=== PATIENT | female | born 1990 | race Caucasian/White ===

== ENCOUNTER 2016-09-15 01:44 | Emergency (ER) | payer BC, OTHER ==
[~2016-09-15] VITALS: Ht 162.6 cm; Wt 60.0 kg
[~2016-09-15 01:44] MED LIST: OLAN10 PO
[2016-09-15 01:46] VITALS: BP 158/107; PULSE 97; RESP 16; TEMP 97.8; O2SAT 97
[2016-09-15] MEDS ORDERED: OLAN10TA PO (02:28)
--- NOTE | 2016-09-15 02:30 | PD ---
HPI Chief Complaint: Medical Clearance Time Seen by Provider: 02:21 Travel History International Travel<30 days: No Contact w/Intl Traveler<30days: No Traveled to known affect area: No History of Present Illness HPI 26-year-old white female presents to emergency department requesting something for sleep. She is also requesting a ride to the [facility]. She states that she was kicked out of the house by her boyfriend because she went to visit her ex-boyfriend in senior care this week. She also goes on to state that she was seen at [facility] 2 days ago was prescribed Zyprexa and another medication but has not filled them. She has no intention of taking these medications. She states that she hasn't slept in on Sunday. She wanted some trazodone and a place to sleep. She denies any suicidal homicidal ideation. No toxic ingestions. PFSH Past Medical History Bipolar Disorder: Yes Anxiety: Yes Depression: Yes Cancer: No Cardiovascular Problems: No Diminished Hearing: No Endocrine: No Genitourinary: No Immune Disorder: No Musculoskeletal: No Neurologic: No Psychiatric: Yes (Bipolar) Reproductive: No Respiratory: No Tetanus Vaccination: < 5 Years ?: Not : 0 Para: 0 Past Surgical History Surgical History: No Previous Surgery Social History Alcohol Use: Yes (OCC) Tobacco Use: Yes (OCC BLACK AND MILDS) Substance Use: Yes Allergies-Medications (Allergen,Severity, Reaction): Coded Allergies: No Known Allergies (Verified , 09/15/16) Reported Meds & Prescriptions Reported Meds & Active Scripts Active Olanzapine 10 Mg Tab 10 Mg PO DIRECTED 15 Days Take 10mg PO daily and 20mg PO qHS. Review of Systems Except as stated in HPI: all other systems reviewed are Neg Psychiatric: Positive: Mood Disorder, Substance Abuse, No: Anxiety, Depression , Suicidal Ideations, Disorder of Thought, Homicidal Ideation Physical Exam Narrative GENERAL: Well-nourished, well-developed patient. SKIN: Warm and dry. HEAD: Normocephalic and atraumatic. EYES: No scleral icterus. No injection or drainage. ENT: No nasal drainage noted. Mucous membranes pink. Airway patent. NECK: Supple, trachea midline. Moves head freely without obvious discomfort. CARDIOVASCULAR: Regular rate and rhythm without murmurs, gallops, or rubs. RESPIRATORY: Breath sounds equal bilaterally. No accessory muscle use. GASTROINTESTINAL: Abdomen soft, non-tender, nondistended. EXTREMITIES: No cyanosis or edema. BACK: Nontender without obvious deformity. No CVA tenderness. NEURO: Patient is alert and oriented. no sensorimotor deficits. Nonfocal. Normal speech. PSYCH: No delusions. No auditory or visual hallucinations. Data Data Last Documented VS Vital Signs Date Time Temp Pulse Resp B/P Pulse Ox O2 Delivery O2 Flow Rate FiO2 09/15/16 01:46 97.8 97 16 158/107 97 Room Air MDM Medical Decision Making Medical Screen Exam Complete: Yes Emergency Medical Condition: Yes Medical Record Reviewed: Yes Differential Diagnosis MDM: High Differential diagnoses: Schizophrenia, schizoaffective disorder, bipolar, anxiety, depression, adjustment reaction, mood disorder NOS, ODD, depressive disorder NOS, dementia, dementia with agitation, psychosis NOS, substance induced mood disorder, intermittent explosive disorder, Asperger syndrome, infection,electrolyte abnormality, malingering. Narrative Course The patient is currently homeless. She is looking for something to help sleep and a way to get to the [facility]. She is not a threat to herself or others. The patient will be allowed to call a friend to see if they can take her home or allow her to stay at their house. This is homelessness Diagnosis Primary Impression: Homelessness Referrals: [facility] (Out patient) Patient Instructions: General Instructions Additional Instructions: Rest. Increase fluids. 50 mg of Benadryl for sleep. Follow-up with [facility]. Follow-up with [facility]. Med/Other Pt SpecificInfo: No Meds Exist/No RX given Disposition: 01 DISCHARGE HOME Condition: Stable Duong Alfonso Sep 15, 2016 02:30
== END 2016-09-15 03:18 | disposition home or self-care (01) ==
LOC: NEPB 01:44
DX: G47.00 Insomnia, unspecified (principal); Z59.0 Homelessness; F31.9 Bipolar disorder, unspecified
CPT/HCPCS: 99282

== ENCOUNTER 2016-11-10 21:15 | Inpatient (IN) | payer BC, OTHER ==
[~2016-11-10] VITALS: Ht 165.1 cm; Wt 63.9 kg
[~2016-11-10 21:15] MED LIST changes: -OLAN10 PO; +OLAN10TA PO
[2016-11-10 21:23] VITALS: BP 121/77; PULSE 121; RESP 20; TEMP 99; O2SAT 99
[2016-11-10] MEDS ORDERED: LORazepam 2 MG/ML VIAL IV ONE (21:30)
[2016-11-10] MEDS ORDERED: SODIUM CHLOR 0.9% 1000 ML INJ 1,000 ML IV ONE (21:30)
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
[2016-11-10] MEDS ORDERED: LORazepam 2 MG/ML VIAL IM ONE (22:00)
[2016-11-10 22:29] LABS: AUTOMATED NEUTROPHIL # 6.5 TH/MM3 (1.8-7.7); BASOPHIL % 0.4 % (0.0-2.0); EOSINOPHIL % 0.2 % (0.0-4.0); HEMATOCRIT 44.2 % (35.0-46.0); HEMO FLAGS DIFF FINAL; LYMPH % 20.6 % (9.0-44.0); MEAN CELL VOLUME 87.3 FL (80.0-100.0); MEAN CORPUSCULAR HEMOGLOBIN 28.9 PG (27.0-34.0); MEAN CORPUSCULAR HGB CONC 33.1 % (32.0-36.0); MONO % 11.8 % (0.0-8.0); PLATELET COUNT 307 TH/MM3 (150-450); RED BLOOD COUNT 5.06 MIL/MM3 (4.00-5.30); RED CELL DISTRIBUTION WIDTH 13.5 % (11.6-17.2); WHITE BLOOD COUNT 9.6 TH/MM3 (4.0-11.0)
[2016-11-10 22:44] LABS: ANION GAP 12 MEQ/L (5-15)
[2016-11-10 22:54] LABS: ALKALINE PHOSPHATASE 64 U/L (45-117); ALT (GPT) 25 U/L (10-53); AST (GOT) 30 U/L (15-37); BICARBONATE 22.1 MEQ/L (21.0-32.0); BLOOD UREA NITROGEN 7 MG/DL (7-18); CHLORIDE 105 MEQ/L (98-107); GLOMERULAR FILTRATION RATE 59 ML/MIN (>89); SODIUM (NA) 139 MEQ/L (136-145); TOTAL BILIRUBIN ADULT 1.6 MG/DL (0.2-1.0)
[2016-11-11 00:55] VITALS: PULSE 100
[2016-11-11 03:37] VITALS: BP 111/79; PULSE 89; RESP 16; O2SAT 99
[2016-11-11] MEDS ORDERED: LORazepam 2 MG/ML VIAL IV PUSH ONE (04:00)
[2016-11-11] MEDS ORDERED: OLANZapine IM 10 MG VIAL IM ONE (04:00)
[2016-11-11 04:07] LABS: AMPHETAMINE, URINE NEG (NEG); COCAINE, URINE NEG (NEG)
[2016-11-11 04:09] LABS: BARBITURATES, URINE NEG (NEG)
[2016-11-11 06:10] VITALS: BP 122/71; PULSE 102; RESP 18; TEMP 97.8; O2SAT 98
[2016-11-11] MEDS ORDERED: MAGNESIUM HYDROXIDE SUSP 30 ML CUP PO PRN (11:15)
[2016-11-11] MEDS ORDERED: ACETAMINOPHEN 325 MG TAB PO PRN (11:15)
[2016-11-11] MEDS ORDERED: ALUMINUM/MAGNESIUM/SIMETH 30 ML CUP PO PRN (11:15)
[2016-11-11] MEDS ORDERED: OLANZapine IM 10 MG VIAL IM STA (11:17)
[2016-11-11] MEDS ORDERED: LORazepam 2 MG/ML VIAL IM STA (11:17)
[2016-11-11 11:20] VITALS: BP 112/66; PULSE 110; TEMP 96.5; O2SAT 99
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
[2016-11-11 14:41] VITALS: BP 114/85; PULSE 97; RESP 18; TEMP 97.6; O2SAT 99
--- NOTE | 2016-11-11 18:21 | EKG ---
Date Performed: 11/10/2016 Time Performed: 23:32:07 PTAGE: 26 years EKG: Sinus rhythm WITH SINUS ARRHYTHMIA BORDERLINE RIGHT AXIS DEVIATION BORDERLINE ECG NO PREVIOUS TRACING DOCTOR: Hao Newell Interpretating Date/Time 11/11/2016 18:14:52
[2016-11-11] MEDS ORDERED: OLANZapine IM 10 MG VIAL IM PRN (21:00)
[2016-11-11] MEDS: OLANZapine ODT 20 MG TAB PO SCH (21:00)
[2016-11-12] MEDS: LORazepam 1 MG TAB PO PRN ×3 (06:33→06:50)
[2016-11-12] MEDS: OLANZapine ODT 10 MG TAB PO SCH (08:21)
[2016-11-12] MEDS ORDERED: OLANZapine IM 10 MG VIAL IM STA (09:56)
[2016-11-12] MEDS ORDERED: LORazepam 2 MG/ML VIAL IM STA (09:56)
[2016-11-12] MEDS ORDERED: diphenhydrAMINE HCL 50 MG/ML VIAL IM STA (09:56)
[2016-11-12] MEDS ORDERED: diphenhydrAMINE HCL 50 MG/ML VIAL ONE (09:56)
[2016-11-12] MEDS: LORazepam 2 MG/ML VIAL IM PRN (16:17)
[2016-11-12 16:25] VITALS: BP 112/73; PULSE 87; RESP 18; TEMP 98.1; O2SAT 98
[2016-11-12] MEDS: OLANZapine ODT 20 MG TAB PO SCH (20:52)
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
[2016-11-13] MEDS: LORazepam 1 MG TAB PO PRN ×3 (04:33→18:01)
[2016-11-13 06:42] VITALS: BP 134/90; PULSE 94; RESP 21; TEMP 98.6; O2SAT 100
[2016-11-13] MEDS: OLANZapine ODT 10 MG TAB PO SCH (08:31)
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
[2016-11-13 15:15] VITALS: BP 114/73; PULSE 104; RESP 18; TEMP 97.8; O2SAT 97
[2016-11-13] MEDS: OLANZapine ODT 20 MG TAB PO SCH (20:29)
[2016-11-14 06:26] VITALS: BP 124/76; PULSE 74; RESP 18; TEMP 97.7; O2SAT 97
[2016-11-14] MEDS: OLANZapine ODT 10 MG TAB PO SCH (09:00)
--- NOTE | 2016-11-14 13:24 | HHI.PYPN ---
Subjective Remarks Patient was seen and discussed with the staff technologist. Patient claimed that she has been feeling better with the medication but said her mind is still racing. But she denied any suicidal ideation intentions or plan. No side effects were complained. She likes the medication. Advised to continue with the same treatment Review of Systems Except as stated in HPI: all other systems reviewed are Neg Psychiatric: COMPLAINS OF: Mood changes, Delusions Objective Alert: Yes [place]: Person, Place, Date, Situation Mood: Agitated, Angry Affect: Labile, Manic Memory Intact: Immediate, Recent, Remote Hallucinations: Other (patient denied any active auditory or visual hallucinations but her mind is still racing) Delusions: No Delusion Type: Paranoid, Other (with mind racing) Suicidal: Ideation (patient denied any suicidal ideation intentions or plan) Homicidal: Ideation (denies) Insight/Judgement Fair Vitals/IOs Vital Signs Date Time Temp Pulse Resp B/P Pulse Ox O2 Delivery O2 Flow Rate FiO2 11/14/16 06:26 97.7 74 18 124/76 97 11/11/16 06:10 Room Air Assessment & Plan Problem List: (1) Bipolar I disorder, severe, current or most recent episode manic, with psychotic features ICD Code: F31.2 Assessment & Plan Estimated LOS: days Justification for Cont. Inpt. Monitoring and titrating of the medication risk of decompensation Request HC Surrog/Guard Advoc?: Yes Obinna Cartagena MD Nov 14, 2016 13:24
[2016-11-14 15:32] VITALS: BP 116/60; PULSE 93; RESP 18; TEMP 98.1; O2SAT 97
[2016-11-14] MEDS: OLANZapine ODT 20 MG TAB PO SCH (20:24)
[2016-11-15] MEDS: diphenhydrAMINE HCL 50 MG CAP PO PRN ×2 (03:44→20:15)
[2016-11-15] MEDS: LORazepam 1 MG TAB PO PRN (06:18)
[2016-11-15 06:41] VITALS: BP 129/83; PULSE 86; RESP 18; TEMP 97.3; O2SAT 97
[2016-11-15] MEDS: OLANZapine ODT 10 MG TAB PO SCH (08:45)
--- NOTE | 2016-11-15 13:21 | HHI.PYPN ---
Subjective Remarks Remains emotionally labile, unable to control her anger, threatening other patients, and demonstrating poor insight and poor judgment. Review of Systems ROS Limitations: Clinical Condition Except as stated in HPI: all other systems reviewed are Neg Objective Alert: Yes [place]: Person, Place, Date, Situation Mood: Agitated, Angry Affect: Labile, Manic Memory Intact: Immediate, Recent, Remote Hallucinations: Other (patient denied any active auditory or visual hallucinations but her mind is still racing) Delusions: Yes Delusion Type: Paranoid, Other (with mind racing) Suicidal: Ideation (patient denied any suicidal ideation intentions or plan) Homicidal: Ideation (denies) Insight/Judgement Patient continues to demonstrate markedly impaired insight and judgment, threatening to harm other patients. Vitals/IOs Vital Signs Date Time Temp Pulse Resp B/P Pulse Ox O2 Delivery O2 Flow Rate FiO2 11/15/16 06:41 97.3 86 18 129/83 97 Assessment & Plan Problem List: (1) Bipolar I disorder, severe, current or most recent episode manic, with psychotic features ICD Code: F31.2 Assessment & Plan Estimated LOS: days Justification for Cont. Inpt. Unable to care for self and threatening other patients. Request HC Surrog/Guard Advoc?: Yes Krzysztof Mills MD Nov 15, 2016 13:21
[2016-11-15 19:29] VITALS: BP 117/84; PULSE 105; RESP 18; TEMP 98.5; O2SAT 96
[2016-11-15] MEDS: OLANZapine ODT 20 MG TAB PO SCH (20:15)
[2016-11-16 05:27] VITALS: BP 127/78; PULSE 100; RESP 18; TEMP 98.2; O2SAT 97
[2016-11-16] MEDS: OLANZapine ODT 10 MG TAB PO SCH (09:00)
[2016-11-16] MEDS ORDERED: diphenhydrAMINE HCL 50 MG/ML VIAL IM ONE (10:15)
[2016-11-16] MEDS ORDERED: HALOPERIDOL LACTATE 5 MG/ML AMP IM ONE (10:15)
[2016-11-16] MEDS: LORazepam 2 MG/ML VIAL IM PRN (10:23)
--- NOTE | 2016-11-16 11:30 | HHI.PYPN ---
Subjective Remarks Patient seen and examined during fresh air in the [facility] area. Chart reviewed. I see that the patient has been restarted on the Zyprexa 30 mg per day on which she was previously stabilized during her hospitalization in May of last year under my care. Case discussed with nursing staff who reports patient remains hostile and intrusive. Prior to my formal evaluation of the patient this morning the patient had grown agitated and was picking up chairs, preparing to throw them. I ordered her medicated with Haldol, Ativan and Benadryl at that time. At the time of my evaluation, the patient is somewhat calmer but remains extremely irritable. She insists that her nurse is a "crackhead" and medicated her with crack, and further the patient suspects I am a crackhead as well. Thought process is disorganized with significant loosening of associations. Denies side effects from medications. Review of Systems ROS Limitations: Psychotic, Poor Historian Other No physical complaints today Objective Alert: Yes [place]: Person, Place (at least) Mood: Agitated, Angry Affect: Restricted (dysphoric) Memory Intact: Comment (not formally assessed) Hallucinations: Other (no AVH) Delusions: Yes Delusion Type: Paranoid Suicidal: Ideation (no SI but unreliable to contract for safety in her present state) Homicidal: Ideation (no HI but unreliable contract for safety in her present state) Insight/Judgement Poor Remarks No abnormal motor movements noted. Thought process disorganized with loosening of associations. Speech somewhat pressured and rambling. Grooming and hygiene are fair at best. Labs Labs reviewed. No new labs. I note that ED [id number]-ru-[id number] test was negative. GFR was decreased, but this was perhaps due to dehydration at admission. Vitals/IOs Vital Signs Date Time Temp Pulse Resp B/P Pulse Ox O2 Delivery O2 Flow Rate FiO2 11/16/16 05:27 98.2 100 18 127/78 97 Assessment & Plan Problem List: (1) Bipolar I disorder, severe, current or most recent episode manic, with psychotic features ICD Code: F31.2 Assessment & Plan Patient with ongoing severe lesia despite several days of Zyprexa monotherapy. Given the severity of her psychiatric symptoms at present, I will add Depakote ER 25mg/kg ~= 1500mg qHS for mood stabilization and plan to check a Depakote and ammonia level after the appropriate interval. LFTs and platelets okay and verrz-ei-zumi test in the ED was negative as I said. I will recheck a BMP to ensure the patient's GFR is improved. Continue to monitor closely on the inpatient psychiatric unit. I will institute mouth checks. Continue other medications and care as ordered. Justification for Cont. Inpt. Impairments in safety. Impairments in social function. Medication changes in process. High risk for decompensation in a less restrictive environment. Discharge Planning Pending psychiatric stabilization Request HC Surrog/Guard Advoc?: Yes Sixto Calvo MD Nov 16, 2016 11:29
[2016-11-16 14:55] LABS: BICARBONATE 24.2 MEQ/L (21.0-32.0); POTASSIUM 3.8 MEQ/L (3.5-5.1)
[2016-11-16 18:19] VITALS: BP 127/83; PULSE 97; RESP 17; TEMP 97.2; O2SAT 99
[2016-11-16] MEDS: OLANZapine ODT 20 MG TAB PO SCH (20:17)
[2016-11-16] MEDS ORDERED: DIVALPROEX SODIUM E.R. 500 MG TAB PO SCH (21:00)
[2016-11-17 05:48] VITALS: BP 123/71; PULSE 89; RESP 18; TEMP 98; O2SAT 98
[2016-11-17] MEDS ORDERED: HALOPERIDOL LACTATE 5 MG/ML AMP IM ONE (07:30)
[2016-11-17] MEDS ORDERED: LORazepam 2 MG/ML VIAL IM ONE (07:30)
[2016-11-17] MEDS ORDERED: diphenhydrAMINE HCL 50 MG/ML VIAL IM ONE (07:30)
[2016-11-17] MEDS: OLANZapine ODT 10 MG TAB PO SCH (09:40)
--- NOTE | 2016-11-17 11:24 | HHI.PYPN ---
Subjective Remarks Patient seen and examined. Chart reviewed. Case discussed with counselor, nursing staff and occupational therapist in treatment team. Prior to my arrival on the unit I was called by the nursing staff that the patient was becoming acutely agitated, and I ordered her medicated with Haldol, Ativan and Benadryl. Per nursing staff, patient has calmed after receiving the ETO. She did refuse her Depakote overnight. Per occupational therapist, patient does endeavor to participate in groups, but her degree of thought disorder prevents her from contributing much. On my examination today, the patient continues to display some loosening of associations. She provides some material linking God and Dioni Sanford, but the connection is quite tenuous. She says that she will continue to refuse the Depakote because it is "dope" and she doesn't want to feel "dope sick." She likewise believes the ETO was "dope." She continues to take the Zyprexa and is tolerating this well without side effects. Review of Systems ROS Limitations: Poor Historian Other No physical complaints today. Objective Alert: Yes [place]: Person, Place Mood: Other (Calmer) Affect: Other (A little expansive) Memory Intact: Comment (not formally assessed) Hallucinations: Other (No AVH) Delusions: No Delusion Type: Other (possibly some grandiosity.) Suicidal: Ideation (No SI) Homicidal: Ideation (No HI) Insight/Judgement Poor Remarks No motoric abnormalities noted. TP as above. Speech remains a little pressured. Labs Test 11/16/16 14:19 Sodium Level 140 MEQ/L Potassium Level 3.8 MEQ/L Chloride Level 106 MEQ/L Carbon Dioxide Level 24.2 MEQ/L Anion Gap 10 MEQ/L Blood Urea Nitrogen 15 MG/DL Creatinine 0.87 MG/DL Estimat Glomerular Filtration 78 ML/MIN Rate Random Glucose 90 MG/DL Calcium Level 8.6 MG/DL Labs reviewed. No new labs. Vitals/IOs Vital Signs Date Time Temp Pulse Resp B/P Pulse Ox O2 Delivery O2 Flow Rate FiO2 11/17/16 05:48 98.0 89 18 123/71 98 Assessment & Plan Problem List: (1) Bipolar I disorder, severe, current or most recent episode manic, with psychotic features ICD Code: F31.2 Assessment & Plan Patient with ongoing issues with agitation requiring ETO. She is on a maximal dose of Zyprexa and plans to continue to refuse Depakote. She does respond nicely to Haldol ETO, albeit temporarily. I will therefore add some scheduled Haldol PO with IM backup given the issues with accepting meds other than Zyprexa. QTc 417ms on admission. Discontinue Depakote. Continue other medications and care as ordered. Justification for Cont. Inpt. Ongoing issues with agitation. Impairments in social function. Medication changes in process. High risk for decompensation in a less restrictive environment. Discharge Planning Pending psychiatric stabilization. Request HC Surrog/Guard Advoc?: Yes Sixto Calvo MD Nov 17, 2016 11:24
[2016-11-17] MEDS ORDERED: HALOPERIDOL LACTATE 5 MG/ML AMP IM PRN (16:15)
[2016-11-17 17:59] VITALS: BP 105/69; PULSE 99; RESP 18; TEMP 98; O2SAT 97
[2016-11-17] MEDS ORDERED: ONDANSETRON ODT 4 MG TAB PO PRN (18:15)
[2016-11-17] MEDS: HALOPERIDOL 5 MG TAB PO SCH (21:00)
[2016-11-17] MEDS: OLANZapine ODT 20 MG TAB PO SCH (21:00)
[2016-11-18] MEDS: HALOPERIDOL 5 MG TAB PO SCH ×2 (08:53→08:56)
[2016-11-18] MEDS: OLANZapine ODT 10 MG TAB PO SCH (08:53)
[2016-11-18] MEDS: LORazepam 1 MG TAB PO PRN (14:49)
--- NOTE | 2016-11-18 15:42 | HHI.PYPN ---
Subjective Remarks Patient was seen and case discussed with nursing. This morning patient was yelling and agitated. She is also adamant that the Haldol is causing nausea, vomiting, diarrhea and refuses to take it. She continues to be compliant with Zyprexa. However she made a statement that she plans on not taking it after discharge however, after psychoeducation she change her mind. He remains a poor insight into her admission. She refuses medications for diarrhea and remains paranoid any medications. Mood is irritable. Denies suicidal ideation intent or plan Objective Alert: Yes [place]: Person, Place Mood: Calm Affect: Blunted Memory Intact: Comment (not formally assessed) Hallucinations: Other (No AVH) Delusions: No Delusion Type: Other (possibly some grandiosity.) Suicidal: Ideation (No SI) Homicidal: Ideation (No HI) Insight/Judgement Poor Vitals/IOs Vital Signs Date Time Temp Pulse Resp B/P Pulse Ox O2 Delivery O2 Flow Rate FiO2 11/17/16 17:59 98.0 99 18 105/69 97 Assessment & Plan Problem List: (1) Bipolar I disorder, severe, current or most recent episode manic, with psychotic features ICD Code: F31.2 Assessment & Plan Nursing confirms that patient did have nausea and vomiting secondary to Haldol. I'm going to hold it for this weekend and let treating psychiatrist decide on further medication management. Patient was reminded that if she becomes aggressive we may have to resume that medication Justification for Cont. Inpt. Patient will decompensate in a less restrictive setting Request HC Surrog/Guard Advoc?: Yes Fito Mercado DO Nov 18, 2016 15:42
--- NOTE | 2016-11-18 17:26 | EKG ---
Date Performed: 11/17/2016 Time Performed: 17:36:32 PTAGE: 26 years EKG: Sinus rhythm MODERATE ST DEPRESSION Compared to prior tracing no significant change ABNORMAL ECG PREVIOUS TRACING : 11/10/2016 23.32 DOCTOR: Krzysztof Ramsey Interpretating Date/Time 11/18/2016 17:26:10
[2016-11-18] MEDS: OLANZapine ODT 20 MG TAB PO SCH (20:24)
[2016-11-18 22:20] VITALS: BP 110/69; PULSE 115; RESP 18; TEMP 98.8; O2SAT 95
[2016-11-19 05:27] VITALS: BP 118/58; PULSE 94; RESP 18; TEMP 98; O2SAT 98
[2016-11-19] MEDS: OLANZapine ODT 10 MG TAB PO SCH (07:58)
[2016-11-19] MEDS: LORazepam 1 MG TAB PO PRN (10:55)
--- NOTE | 2016-11-19 16:38 | HHI.PYPN ---
Subjective Remarks Patient was seen and case discussed with nursing. Patient remains pleasant and cooperative during the interview. Possibly exaggerating her improvement with hopes of discharge. Per nursing she had a minor outburst this morning that by mouth Ativan. Calling some patients racial slurs. Some moderate arguing on the phone. Otherwise she is logical and coherent. No elevated mood. Denies psychosis. Compliant with medications Objective Alert: Yes [place]: Person, Place Mood: Calm Affect: Restricted Memory Intact: Comment (not formally assessed) Hallucinations: Other (No AVH) Delusions: No Delusion Type: Other (none elicited) Suicidal: Ideation (No SI) Homicidal: Ideation (No HI) Insight/Judgement Limited Vitals/IOs Vital Signs Date Time Temp Pulse Resp B/P Pulse Ox O2 Delivery O2 Flow Rate FiO2 11/19/16 05:27 98.0 94 18 118/58 98 Assessment & Plan Problem List: (1) Bipolar I disorder, severe, current or most recent episode manic, with psychotic features ICD Code: F31.2 Assessment & Plan Continue current treatment plan Justification for Cont. Inpt. Patient will decompensate in a less restrictive setting Request HC Surrog/Guard Advoc?: Yes Fito Mercado DO Nov 19, 2016 16:38
[2016-11-19 16:55] VITALS: BP 107/66; PULSE 84; RESP 18; TEMP 98.1; O2SAT 100
[2016-11-19] MEDS: OLANZapine ODT 20 MG TAB PO SCH (21:00)
[2016-11-20 06:12] VITALS: BP 128/71; PULSE 91; RESP 16; TEMP 97.2; O2SAT 97
[2016-11-20] MEDS: OLANZapine ODT 10 MG TAB PO SCH (08:50)
--- NOTE | 2016-11-20 09:59 | HHI.PYPN ---
Subjective Remarks Patient seen and examined with nurse in counselor. Chart reviewed. Case discussed with nurse who reports patient remains somewhat labile and manipulative. She reportedly used racial slurs in referring to staff and peers this morning. On my examination today, patient says that she had a "slight altercation this morning that was quickly resolved." Speech is somewhat stilted and overly proper, and patient seems to be making a concerted effort to appear well. She is discharge focused and insists that she can reside with her boyfriend, Marcus, but clarifies to say that they will be residing in a car on Marcus's brother's property. She remains a little disinhibited and gives unbidden details of her sex life with Marcus. She is tolerating her Zyprexa well and feels that it helps her with socialization. She could not tolerate the Haldol, and this was held by Dr. Mercado. She denies side effects from medications otherwise. Review of Systems ROS Limitations: Poor Historian Other No physical complaints today. Objective Alert: Yes [place]: Person, Place (at least) Mood: Anxious (for discharge) Affect: Labile Memory Intact: Comment (Seems intact on clinical exam.) Hallucinations: Other (None) Delusions: No Delusion Type: Other (No james delusions) Suicidal: Ideation (No SI) Homicidal: Ideation (No HI) Insight/Judgement Poor Remarks TP fairly linear with only slight loosening of association. Speech wnl for rate. No abnormal motor movements. Grooming and hygiene are at least fair. Labs Labs reviewed. No new labs. Vitals/IOs Vital Signs Date Time Temp Pulse Resp B/P Pulse Ox O2 Delivery O2 Flow Rate FiO2 11/20/16 06:12 97.2 91 16 128/71 97 Assessment & Plan Problem List: (1) Bipolar I disorder, severe, current or most recent episode manic, with psychotic features ICD Code: F31.2 Assessment & Plan Patient unable to tolerate addition of Haldol, and in any event she maintains that she will not take any other agent than Zyprexa following discharge. Patient is already on a robust dose of Zyprexa with partial remission of symptoms of bipolar lesia and without evident side effects, including sedation. Larger doses of Zyprexa (up to 60mg/day) have been studied, particularly in the schizophrenia literature. Given the circumstances of the case, I think further titration of her Zyprexa gives the best chance for adequate remission of symptoms to allow for safe discharge, and I will titrate Zyprexa at this time. Discontinue Haldol. Continue other medications and care as ordered. Justification for Cont. Inpt. Impairments in social function. Medication changes requiring monitoring. High risk for decompensation in less restrictive environment pending psychiatric stabilization. Discharge Planning Pending psychiatric stabilization. Counselor to explore further disposition options. Request HC Surrog/Guard Advoc?: Yes Sixto Calvo MD Nov 20, 2016 09:58
[2016-11-20 17:57] VITALS: BP 124/59; PULSE 81; RESP 18; TEMP 98.5; O2SAT 98
[2016-11-20 19:46] VITALS: BP 124/59; PULSE 81; RESP 16; TEMP 98.5; O2SAT 98
[2016-11-20] MEDS: OLANZapine ODT 20 MG TAB PO SCH (20:09)
[2016-11-20] MEDS: diphenhydrAMINE HCL 50 MG CAP PO PRN (23:28)
[2016-11-21] MEDS: LORazepam 1 MG TAB PO PRN (01:48)
[2016-11-21 05:32] VITALS: BP 117/90; PULSE 83; RESP 18; TEMP 98.6; O2SAT 97
[2016-11-21] MEDS: OLANZapine ODT 10 MG TAB PO SCH (08:29)
--- NOTE | 2016-11-21 11:44 | HHI.PYPN ---
Subjective Remarks Patient seen and examined with nurse. Chart reviewed. Case discussed with nurse, counselor and occupational therapist in treatment team. Per nursing staff, patient required Ativan PRN overnight for agitation secondary to frustration at not being discharged. Counselor has reached out to Marcus, the man that patient reported was her boyfriend. Marcus apparently told the counselor that he is not in a relationship with the patient and would not be able to provide her with any sort of housing. Occupational therapist relates that the patient is doing somewhat better but tends to incite peers during groups. On my examination today, the patient insists "I don't have a mental illness." [facility]. She insists that her parents are crackheads. She has extremely poor frustration tolerance and when I explained that we will need to retain her for further stabilization, she rages in her room but is eventually able to calm herself down. She requests a new psychiatrist. She then proceeds to [facility] and says that she knows of several "safe houses" to which she could go if I would only discharge her today. Denies side effects from medications. Review of Systems ROS Limitations: Poor Historian Other No physical complaints today Objective Alert: Yes [place]: Person, Place Mood: Agitated, Angry, Anxious Affect: Labile Memory Intact: Comment (Seems intact on clinical exam.) Hallucinations: Other (no AVH) Delusions: No Delusion Type: Other (no delusions) Suicidal: Ideation (No SI) Homicidal: Ideation (No HI) Insight/Judgement Poor Remarks Thought process perseverative on discharge. Speech somewhat loud, angry, although patient does make attempts to control this. No motor abnormalities noted. Labs Labs reviewed. No new labs. Vitals/IOs Vital Signs Date Time Temp Pulse Resp B/P Pulse Ox O2 Delivery O2 Flow Rate FiO2 11/21/16 05:32 98.6 83 18 117/90 97 Assessment & Plan Problem List: (1) Bipolar I disorder, severe, current or most recent episode manic, with psychotic features ICD Code: F31.2 Assessment & Plan Continue Zyprexa 10/25 mg as ordered. Patient does seem to be deriving some benefit from this but continues to struggle with poor frustration tolerance and mood lability. I suspect that she will need somewhat extended stabilization. Disposition also remains a thorny issue. I am extremely loath to discharge this chronically mentally ill patient with poor insight to the homeless jail. I have asked the counselor to investigate whether some alternative disposition might be made. Continue other medications and care as ordered. Justification for Cont. Inpt. Impairments in social function. High risk for decompensation in a less restrictive environment given poor insight and history of medication nonadherence. Discharge Planning Disposition location TBD. Homeless jail should be a last resort. Outpatient commitment? Request HC Surrog/Guard Advoc?: Yes Sixto Calvo MD Nov 21, 2016 11:43
[2016-11-21 17:30] VITALS: BP 112/64; PULSE 85; RESP 18; TEMP 98.5; O2SAT 98
[2016-11-21] MEDS: OLANZapine ODT 20 MG TAB PO SCH (20:59)
[2016-11-22 06:00] VITALS: BP 103/67; PULSE 88; RESP 17; TEMP 97.8; O2SAT 94
[2016-11-22] MEDS: OLANZapine ODT 10 MG TAB PO SCH (09:20)
--- NOTE | 2016-11-22 12:18 | HHI.PYPN ---
Subjective Remarks Patient seen and examined with nurse. Chart reviewed. Case discussed with nursing staff who reports patient has been pacing the halls and verbally arguing with a male peer, although in fairness the male peer was likely instigator. On my examination today, patient continues to have somewhat pressured speech but overall seems calmer and more rational. She once again becomes upset when I explained that she will not be discharged today but is able to contain herself better. I think it is a sign of improving insight that she asks that some sort of outpatient commitment be initiated, and I have discussed with her the structure of the outpatient commitment program and she is in agreement with entering into this program. She continues to say that she cannot return home to her parents because they are "crack heads with holes in their head." She remains vague about where she would go otherwise but insists that she has some sort of alternative safe disposition plan. Denies side effects from medications. Review of Systems Other No physical complaints today Objective Alert: Yes [place]: Person, Place Mood: Other (Calmer) Affect: Labile (less labile and more in control) Memory Intact: Comment (Seems intact on clinical exam.) Hallucinations: Other (no AVH) Delusions: No Delusion Type: Other (No james delusions) Suicidal: Ideation (No SI) Homicidal: Ideation (No HI) Insight/Judgement Perhaps improving somewhat Remarks No abnormal motor movements noted. Thought process linear. Labs Labs reviewed. No new labs. Vitals/IOs Vital Signs Date Time Temp Pulse Resp B/P Pulse Ox O2 Delivery O2 Flow Rate FiO2 11/22/16 06:00 97.8 88 17 103/67 94 Assessment & Plan Problem List: (1) Bipolar I disorder, severe, current or most recent episode manic, with psychotic features ICD Code: F31.2 Assessment & Plan Patient seems finally to be showing signs of significant improvement, and I hope that these are lasting. There are several complications in this case including patient's unwillingness to accept medications other than Zyprexa, lack of firm commitment from family to accept the patient back home as indicated to me by counselor, and patient's insistence for rapid discharge in the setting of decreasing rationale for ongoing involuntary inpatient placement as her symptoms improve. I do think the patient has struck upon novel solution , namely the outpatient commitment program, that could provide us with a reasonable compromise. I think that she could stand to benefit from the additional structure of the outpatient commitment program and we'll plan to initiate a petition for this program and consult for second opinion. I will continue Zyprexa as ordered. Continue other medications and care as ordered. Justification for Cont. Inpt. Risk for decompensation Discharge Planning Involuntary outpatient commitment, d/w rn paralegal. We could get this petition prepared and if the patient remains improved, we could consider discharge before the weekend under the most optimistic scenario. She could then return next for [address] for the outpatient commitment hearing. Request HC Surrog/Guard Advoc?: Yes Sixto Calvo MD Nov 22, 2016 12:18
[2016-11-22 18:54] VITALS: BP 108/67; PULSE 72; RESP 18; TEMP 98.6; O2SAT 96
[2016-11-22 19:05] VITALS: BP 109/67; PULSE 95; RESP 17; TEMP 97.3; O2SAT 99
[2016-11-22] MEDS: OLANZapine ODT 20 MG TAB PO SCH (21:00)
[2016-11-23 05:23] VITALS: BP 137/86; PULSE 78; RESP 17; TEMP 97.5; O2SAT 98
[2016-11-23] MEDS: OLANZapine ODT 10 MG TAB PO SCH (08:18)
--- NOTE | 2016-11-23 11:30 | HHI.PYPN ---
Subjective Remarks Patient seen and examined with nurse. Chart reviewed. Case discussed with nursing staff who reports patient's behavior is improved although she remains discharge focused. On my examination today, the patient is calm and pleasant. She is making a concerted effort to remain in good behavioral control, and is somewhat overly formal in this regard, "yes, sir," "no, sir," etc. I reiterate the plan to obtain a second opinion for involuntary outpatient commitment today followed by evaluation for treatment planning by a counter sales representative from [employer]. She is hopeful that this means she can leave the hospital today, but is more accepting when I explained again that our anticipated discharge date is optimistically Sunday. No SI or HI. Denies side effects from medications. She remains agreeable to involuntary outpatient commitment. Review of Systems Other No physical complaints today Objective Alert: Yes [place]: Person, Place Mood: Calm Affect: Other (patient is much better able to control her affective lability) Memory Intact: Comment (intact) Hallucinations: Other (no AVH) Delusions: No Delusion Type: Other (no delusions elicited) Suicidal: Ideation (No SI) Homicidal: Ideation (No HI) Insight/Judgement Improving Remarks Thought process linear. No motoric abnormalities noted. Labs Labs reviewed. No new labs. Vitals/IOs Vital Signs Date Time Temp Pulse Resp B/P Pulse Ox O2 Delivery O2 Flow Rate FiO2 11/23/16 05:23 97.5 78 17 137/86 98 Assessment & Plan Problem List: (1) Bipolar I disorder, severe, current or most recent episode manic, with psychotic features ICD Code: F31.2 Assessment & Plan Patient seems to be improving. Continue Zyprexa as ordered. I have initiated a petition for involuntary outpatient commitment and consulted for a second opinion. Continue to monitor on the inpatient unit overnight. Continue other medications and care as ordered. Justification for Cont. Inpt. Discharge planning. Discharge Planning Barring some clinical deterioration we could consider discharge tomorrow. I have explained to the patient that she would need to return next for the involuntary outpatient commitment hearing. Request HC Surrog/Guard Advoc?: Yes Sixto Calvo MD Nov 23, 2016 11:30
--- NOTE | 2016-11-23 14:31 | PD.CONS ---
Provisional Diagnosis Admission Date Nov 11, 2016 at 11:31 [place] I. Bipolar disorder severe most recent episode lesia with psychotic features F 31.2 History of Present Illness Service Psychiatry Consult Requested By Primary Care Physician Unknown HPI Pt seen and discussed with staff. Chart reviewed. Pt presents on BA taken out by [place] [employer] alleging that pt was irate and had thrown family' s belongings into the pool. Pt was agitated in ED and required ETO of zyprexa. Pt is highly disorganized with rapid pressured speech and grandiose and paranoid delusions. She reports that her boyfriend and family are colluding to have her hospitalized so that he can have sex with her mother and aunt. "It's a sick twisted perverted fantasy..He's already done it and should just let it go! ". Interview cut short due to escalation. 11/23/16 Above note dictated by Dr. Kelsey reviewed and agreed with. Progress note dictated by Dr. Calvo on 11/23/16 reviewed and agreed with. Patient seen by me today with nurse Woodrow. Patient remains with little insight into her disease trying irritability entitlement and manipulation. Questioning now her willingness to join the involuntary outpatient program. Based on this I feel patient is a candidate for this outpatient program. Dr. Calvo has signed first opinion petition supporting participation in the involuntary outpatient treatment program. I agree patient meets criteria for the involuntary outpatient treatment program thus I will cosign second opinion petition supporting patient participation in that program Past Family Social History Coded Allergies: No Known Allergies (Verified , 11/10/16) Reported Medications Olanzapine 10 Mg Tab10 Mg PO DIRECTED #60 TAB Ref 0 09/15/16 Current Medications Medications (Trade) Dose Ordered Sig/Elian Route Start Time Stop Time Status Last Admin (Ativan) 1 mg Q6H PRN PO 11/11/16 11:15 11/21/16 01:48 (Ativan Inj) 1 mg Q6H PRN IM 11/11/16 11:15 11/16/16 10:23 (Benadryl) 50 mg HS PRN PO 11/11/16 11:15 11/20/16 23:28 (Tylenol) 650 mg Q4H PRN PO 11/11/16 11:15 11/23/16 06:05 (Milk Of Magnesia Liq) 30 ml DAILY PRN PO 11/11/16 11:15 (Mag-Al Plus Susp Liq) 30 ml Q6H PRN PO 11/11/16 11:15 (ZyPREXA ZYDIS ODT) 10 mg DAILY PO 11/12/16 09:00 11/23/16 08:18 (ZyPREXA INJ) 10 mg BID PRN IM 11/11/16 21:00 (Zofran Odt) 4 mg Q6H PRN PO 11/17/16 18:15 (ZyPREXA ZYDIS ODT) 25 mg HS PO 11/20/16 21:00 11/22/16 21:00 Patient's Strengths (min. 2) Patient verbal access to healthcare appears to have supportive family Physical Exam Vital Signs Vital Signs Date Time Temp Pulse Resp B/P Pulse Ox O2 Delivery O2 Flow Rate FiO2 11/23/16 05:23 97.5 78 17 137/86 98 Mental Status Examination Speech: Pressured, Rapid, Circumstantial, Tangential Orientation: x3 Memory: Impaired (describe) (poor) Thought Process: Circumstantial, Tangential Thought Content: Paranoid Hallucination Type: None (denies though may be responding to internal stimuli) Attention and Concentration: Other (poor) Suicidal Ideation: No (denies) Previous Suicide Attempts: No Homicidal Ideation: No Previous Homicide Attempts: No Insight: Poor Judgement: Poor Affect if Inappropriate: Labile Mood: Manic Motor Activity: Normal gait Assessment & Plan Problem List: (1) Bipolar I disorder, severe, current or most recent episode manic, with psychotic features ICD Code: F31.2 Assessment & Plan Estimated LOS: days Request HC Surrog/Guard Advoc?: Yes Thaddeus Ribera MD Nov 23, 2016 14:31
[2016-11-23 15:15] VITALS: BP 124/79; PULSE 82; RESP 18; TEMP 98.6; O2SAT 97
[2016-11-23] MEDS: OLANZapine ODT 20 MG TAB PO SCH (20:08)
[2016-11-24 05:37] VITALS: BP 106/57; PULSE 97; RESP 18; TEMP 97.9; O2SAT 97
[2016-11-24] MEDS: OLANZapine ODT 10 MG TAB PO SCH (07:29)
[2016-11-24] MEDS ORDERED: ZYPR10TA PO (10:17)
[2016-11-24] MEDS ORDERED: ZYPR20TA PO (10:17)
--- NOTE | 2016-11-24 10:17 | HHI.DS ---
Psychiatry Discharge Summary Inpatient Psychiatric care?: Yes Advance Directive: No Reason Not Provided: none Mental Health AdvanceDirective: No Health Care Proxy: No Admission Admission Date Nov 11, 2016 at 11:31 Admission Diagnosis: (1) Bipolar I disorder, severe, current or most recent episode manic, with psychotic features ICD Code: F31.2 Brief History Pt seen and discussed with staff. Chart reviewed. Pt presents on BA taken out by [place] [employer] alleging that pt was irate and had thrown family' s belongings into the pool. Pt was agitated in ED and required ETO of zyprexa. Pt is highly disorganized with rapid pressured speech and grandiose and paranoid delusions. She reports that her boyfriend and family are colluding to have her hospitalized so that he can have sex with her mother and aunt. "It's a sick twisted perverted fantasy..He's already done it and should just let it go! ". Interview cut short due to escalation. Tobacco Use In Past 30 Days: No Tobacco Past 30 Days Alcohol Use: Never Hospital Course Patient was admitted to a locked, inpatient psychiatric unit. Appropriate precautions were in place throughout patient's hospital stay. Patient was seen and examined daily on the unit by psychiatry and also visited by counselor. Medications were adjusted. Patient tolerated medication changes well without side effects. Patient had improvement in her presenting psychiatric symptoms during the course of her hospital stay. There was no evidence of any suicidality or homicidality on the inpatient unit. Patient's behavior improved on the inpatient unit with the benefit of psychopharmacologic treatment. On the day of discharge: Patient seen and examined with counselor. Chart reviewed. Case discussed with nursing staff reports there was no behavioral issues overnight. On my examination today, the patient is calm and pleasant. Her thought process seems linear and there is no evidence of psychosis. She denies audiovisual hallucinations and I can elicit no delusional beliefs. Mood is reportedly stable, and I can elicit no depressive or hypomanic/manic symptoms at this time. She denies suicidal or homicidal ideation. She denies side effects from medications. She has no physical complaints. She remains agreeable to entering into the involuntary outpatient commitment program, and I reiterated to her that she will need to present at the next court day, presently scheduled for 11/30 at 8:30 AM for the involuntary outpatient commitment hearing. Weighing the acute, chronic, and protective factors and based on the available evidence, I advanced manufacturing technician to a reasonable degree of medical certainty that the patient is at low imminent risk of harm to self or others from a mental illness as defined and the Arnold act and her level of function is adequate for outpatient care. Patient is requesting discharge from the inpatient psychiatric unit today and in as much as she has ceased to meet criteria for involuntary psychiatric hospitalization at this time, I will arrange for her discharge with psychiatric follow-up as arranged by counselor. Patient is also to follow-up with primary care. I have counseled the patient regarding warning signs for need to return to the psychiatric emergency room is part of the general safety plan. I have counseled patient to abstain from any substances of abuse. I have encouraged the patient to discuss with her outpatient provider adjusting medications as appropriate with ongoing stability but have emphasized that she must not make medication changes on her own without consulting with outpatient provider. Results Blood Pressure 106 / 57 Vital Signs Date Time Temp Pulse Resp B/P Pulse Ox O2 Delivery O2 Flow Rate FiO2 11/24/16 05:37 97.9 97 18 106/57 97 Item Value Date Time Sodium Level 140 MEQ/L 11/16/16 1419 Potassium Level 3.8 MEQ/L 11/16/16 1419 Chloride Level 106 MEQ/L 11/16/16 1419 Carbon Dioxide Level 24.2 MEQ/L 11/16/16 1419 Anion Gap 10 MEQ/L 11/16/16 1419 Blood Urea Nitrogen 15 MG/DL 11/16/16 1419 Creatinine 0.87 MG/DL 11/16/16 1419 Random Glucose 90 MG/DL 11/16/16 1419 Aspartate Amino Transf (AST/SGOT) 30 U/L 11/10/16 2148 Alanine Aminotransferase (ALT/SGPT) 25 U/L 11/10/16 2148 Alkaline Phosphatase 64 U/L 11/10/16 2148 Thyroid Stimulating Hormone 3rd Gen 2.600 uIU/ML 11/10/168 Summary of Procedures None done Imaging None done Pending results at discharge: No Medications # of Antipsychotic meds at D/C: 1 Approp Antipsych med options 1 - Minimum of three failed multiple trials of monotherapy. 2 - Documented plan to taper to monotherapy due to previous use of multiple meds OR cross-taper in progress at D/C. 3 - Documentation of augmentation of Clozapine. 4 - Justification other than those listed in allowable values 1-3, document here : Discharge Discharge Date: Nov 24, 2016 Discharge Diagnosis: (1) Bipolar disorder Diagnosis: Principal ICD Code: F31.9 GAF on discharge is 55 Mental Status Exam at Disch Patient is casually dressed. She is well groomed. She is maintaining basic hygiene. She is awake and alert and oriented 3. No evidence of delirium. No abnormal motor movements noted. Speech is within normal limits for rate, tone and volume. Language and fund of knowledge seemed average. Mood is reportedly stable and affect is full and reactive. Thought process linear. No loosening of associations. No evident delusions. Denies audiovisual hallucinations. Denies suicidal or homicidal ideation. Insight and judgment are fair at best. Pt Condition on Discharge: Stable Discharge Disposition: Discharge Home Discharge Instructions Diet Instructions: As Tolerated, No Restrictions Activities you can perform: Weight Bearing as Shun Scheduled Appointment: Brady Aceves Appointment Date: Nov 28, 2016 Appointment Time: 7:30am New Medications: Olanzapine (Zyprexa) 10 Mg Tab 10 MG PO DAILY Note to pharmacist: Patient presently requires Zyprexa 35mg/day. She should discuss tapering as appropriate with her outpatient provider. Mental Health Days 15 Ref 1 TAB Olanzapine (Zyprexa) 20 Mg Tab 25 MG PO HS Note to pharmacist: Patient presently requires Zyprexa 35mg/day. She should discuss tapering as appropriate with her outpatient provider. Mental Health Days 15 Ref 1 TAB Discontinued Medications: Olanzapine (Olanzapine) 10 Mg Tab 10 MG PO DIRECTED #60 Ref 0 TAB Discharge Time <= 30 minutes Discharge/Advance Care Plan Health Problems: (1) Bipolar I disorder, severe, current or most recent episode manic, with psychotic features Goals to promote your health * To prevent worsening of your condition and complications * To maintain your health at the optimal level Directions to meet your goals Take your medications as prescribed Follow your dietary instruction Follow activity as directed Keep your appointments as scheduled Take your immunizations and boosters as scheduled If your symptoms worsen call your PCP, if no PCP go to Urgent Care Center or Emergency Room For 02/04 questions related to your inpatient stay or results of tests pending at discharge, please contact Dr. Sixto Calvo at Smoking is Dangerous to Your Health. Avoid second hand smoking Problem Qualifiers (1) Bipolar disorder: Qualified Code: F31.73 - Bipolar disorder, in partial remission, most recent episode manic Sixto Calvo MD Nov 24, 2016 10:17
== END 2016-11-24 13:55 | disposition home or self-care (01) | DRG 885 ==
LOC: NEDAMB 21:15 → NEDA 11-11 11:31 → H270 11-11 14:05
PROVIDERS: ADMIT Psychiatry & Neurology Psychiatry; ATTEND Psychiatry & Neurology Psychiatry
DX: F31.2 Bipolar disorder, current episode manic severe with psychotic features (principal); R19.7 Diarrhea, unspecified; Z72.0 Tobacco use
CPT/HCPCS: 80048; 80053; 80307; 80320; 84443; 84703; 85025; 93005; 96372; J1200; J1630; J2060; Q0163

== ENCOUNTER 2017-12-05 02:20 | Emergency (ER) | payer SELFPAY ==
[~2017-12-05] VITALS: Ht 167.6 cm; Wt 55.0 kg
[~2017-12-05 02:20] MED LIST changes: -OLAN10TA PO; +ZYPR10TA PO; +ZYPR20TA PO
[2017-12-05 02:30] VITALS: BP 138/90; PULSE 64; RESP 16; TEMP 98.2; O2SAT 98
[2017-12-05 02:46] VITALS: O2SAT 100
[2017-12-05 03:05] LABS: AUTOMATED NEUTROPHIL # 6.1 TH/MM3 (1.8-7.7); BASOPHIL % 0.4 % (0.0-2.0); EOSINOPHIL # 0.1 TH/MM3 (0-0.4); EOSINOPHIL % 0.7 % (0.0-4.0); HEMATOCRIT 38.5 % (35.0-46.0); HEMOGLOBIN 13.2 GM/DL (11.6-15.3); LYMPH % 25.5 % (9.0-44.0); LYMPHOCYTE # 2.4 TH/MM3 (1.0-4.8); MEAN CELL VOLUME 88.9 FL (80.0-100.0); MEAN CORPUSCULAR HEMOGLOBIN 30.6 PG (27.0-34.0); MEAN CORPUSCULAR HGB CONC 34.4 % (32.0-36.0); MEAN PLATELET VOLUME 8.1 FL (7.0-11.0); MONO % 7.4 % (0.0-8.0); MONOCYTE # 0.7 TH/MM3 (0-0.9); PLATELET COUNT 285 TH/MM3 (150-450); RED BLOOD COUNT 4.33 MIL/MM3 (4.00-5.30); RED CELL DISTRIBUTION WIDTH 13.7 % (11.6-17.2); WHITE BLOOD COUNT 9.3 TH/MM3 (4.0-11.0)
[2017-12-05 03:10] LABS: BICARBONATE 30.1 MEQ/L (21.0-32.0); BLOOD UREA NITROGEN 14 MG/DL (7-18); CALCIUM 8.7 MG/DL (8.5-10.1); CHLORIDE 106 MEQ/L (98-107); CREATININE 0.71 MG/DL (0.50-1.00); GLOMERULAR FILTRATION RATE 97 ML/MIN (>89); GLUCOSE,RANDOM 70 MG/DL (74-106); SODIUM (NA) 141 MEQ/L (136-145)
[2017-12-05 03:13] LABS: TROPONIN I LESS THAN 0.02 NG/ML (0.02-0.05)
--- NOTE | 2017-12-05 04:45 | PD ---
HPI Chief Complaint: Chest Pain Time Seen by Provider: 04:41 Travel History International Travel<30 days: No Contact w/Intl Traveler<30days: No Traveled to known affect area: No History of Present Illness HPI The patient is a 27 year old female who presents to the [facility] emergency department with a history of chest pain that she reports began earlier this evening and lasts for a few hours and then resolved. The patient reports that she was stressed out when it began. She denies ever having a chest pain like this previously. She denies having any shortness of breath associated with it. She reports that she was sweaty when it occurred. The patient reports that she has been stressed out as she was recently displaced from her sober living facility. The patient reports that she is currently homeless. On review of systems otherwise, the patient denies having any known recent fevers, cough, congestion, neck pain, abdominal pain, vomiting, diarrhea , or neurologic symptoms. She incidentally reports having dysuria with urinary frequency and urgency PFS Past Medical History Narrative Medical The patient's past medical history is significant for asthma, bipolar disorder. Arthritis: No Asthma: Yes Autoimmune Disease: No Bipolar Disorder: Yes Anxiety: Yes Depression: Yes Heart Rhythm Problems: No Cancer: No Cardiovascular Problems: No High Cholesterol: No Chemotherapy: No Chest Pain: No Congestive Heart Failure: No COPD: No Cerebrovascular Accident: No Diabetes: No Diminished Hearing: No Endocrine: No Gastrointestinal Disorders: No GERD: No Genitourinary: No Headaches: No Hiatal Hernia: No Heparin Induced Thrombocytopen: No Hypertension: No Immune Disorder: No Implanted Vascular Access Dvce: No Kidney Stones: No Musculoskeletal: No Neurologic: No Psychiatric: Yes Reproductive: No Respiratory: No Migraines: No Radiation Therapy: No Renal Failure: No Seizures: No Sickle Cell Disease: No Sleep Apnea: No Thyroid Disease: No Ulcer: No ?: Not : 0 Para: 0 Past Surgical History Narrative Surgical The patient's past surgical history is reportedly none. Abdominal Surgery: No AICD: No Arteriovenous Shunt: No Cardiac Surgery: No Ear Surgery: No Endocrine Surgery: No Eye Surgery: No Genitourinary Surgery: No Gynecologic Surgery: No Insulin Pump: No Joint Replacement: No Neurologic Surgery: No Oral Surgery: No Pacemaker: No Thoracic Surgery: No Other Surgery: No Social History Alcohol Use: Yes (OCC) Tobacco Use: Yes (OCC BLACK AND MILDS) Substance Use: Yes (CRACK/POT) Allergies-Medications (Allergen,Severity, Reaction): Coded Allergies: No Known Allergies (Verified Adverse Reaction, Unknown, 12/05/17) Reported Meds & Prescriptions Reported Meds & Active Scripts Active Macrobid (Nitrofurantoin Monoh/Nitrofur Macro) 100 Mg Cap 100 Mg PO BID 10 Days Zyprexa (Olanzapine) 20 Mg Tab 25 Mg PO HS 15 Days Note to pharmacist: Patient presently requires Zyprexa 35mg/day. She should discuss tapering as appropriate with her outpatient provider. Zyprexa (Olanzapine) 10 Mg Tab 10 Mg PO DAILY 15 Days Note to pharmacist: Patient presently requires Zyprexa 35mg/day. She should discuss tapering as appropriate with her outpatient provider. Review of Systems General / Constitutional: Positive: Fever Eyes: No: Visual changes HENT: No: Headaches Cardiovascular: Positive: Chest Pain or Discomfort Respiratory: No: Shortness of Breath Gastrointestinal: No: Abdominal Pain Genitourinary: Positive: Urgency, Frequency, Dysuria Musculoskeletal: No: Pain Skin: No Rash Neurologic: No: Weakness Psychiatric: No: Depression Endocrine: No: Polydipsia Hematologic/Lymphatic: No: Easy Bruising Physical Exam Narrative General: The patient is a well-developed well-nourished female in no acute distress, sleeping soundly on my arrival to the room Head and Neck exam: Head is normocephalic atraumatic. Eyes: EOMI, pupils are equal round and reactive to light. Nose: Midline septum with pink mucous membranes Mouth: Dentition unremarkable. Moist mucus membranes. Posterior oropharynx is not erythematous. No tonsillar hypertrophy. Uvula midline. Airway patent. Neck: No palpable lymphadenopathy. No nuchal rigidity. No thyromegaly. Cardiovascular: Regular rate and rhythm without murmurs, gallops, or rubs. Lungs: Clear to auscultation bilaterally. No wheezes, rhonchi, or rales. Abdomen: Soft, without tenderness to palpation in all 4 quadrants of the abdomen. No guarding, rebound, or rigidity. Normal bowel sounds are audible. No tenderness on palpation of McBurney's point. Negative Espino sign. Extremities: No clubbing, cyanosis, or edema. 2+ pulses in all 4 extremities. No calf tenderness on palpation. Back: No costovertebral angle tenderness to palpation. Neurologic Exam: Grossly nonfocal Skin Exam: No rash noted. Intact skin that is warm and dry. Data Data Last Documented VS Vital Signs Date Time Temp Pulse Resp B/P (MAP) Pulse Ox O2 Delivery O2 Flow Rate FiO2 12/05/17 07:38 68 18 118/76 (90) 98 Room Air 12/05/17 02:30 98.2 Orders Orders Electrocardiogram (12/05/17 02:35) Complete Blood Count With Diff (12/05/17 02:35) Basic Metabolic Panel (Bmp) (12/05/17 02:35) Ckmb (Isoenzyme) Profile (12/05/17 02:35) Troponin I (12/05/17 02:35) Iv Access Insert/Monitor (12/05/17 02:35) Ecg Monitoring (12/05/17 02:35) Oxygen Administration (12/05/17 02:35) Oximetry (12/05/17 02:35) Ed Urine Pregnancytest Poc (12/05/17 02:35) Urinalysis - C+S If Indicated (12/05/17 04:55) Aspirin Chew (Aspirin Chew) (12/05/17 05:00) Electrocardiogram (12/05/17 05:30) Troponin I (12/05/17 05:30) Urine Culture (12/05/17 05:01) Nitrofurantoin Monohyd Macrocr (Macrobid (12/05/17 06:00) Labs Laboratory Tests Test 12/05/17 02:45 12/05/17 05:01 12/05/17 05:34 White Blood Count 9.3 TH/MM3 Red Blood Count 4.33 MIL/MM3 Hemoglobin 13.2 GM/DL Hematocrit 38.5 % Mean Corpuscular Volume 88.9 FL Mean Corpuscular Hemoglobin 30.6 PG Mean Corpuscular Hemoglobin Concent 34.4 % Red Cell Distribution Width 13.7 % Platelet Count 285 TH/MM3 Mean Platelet Volume 8.1 FL Neutrophils (%) (Auto) 66.0 % Lymphocytes (%) (Auto) 25.5 % Monocytes (%) (Auto) 7.4 % Eosinophils (%) (Auto) 0.7 % Basophils (%) (Auto) 0.4 % Neutrophils # (Auto) 6.1 TH/MM3 Lymphocytes # (Auto) 2.4 TH/MM3 Monocytes # (Auto) 0.7 TH/MM3 Eosinophils # (Auto) 0.1 TH/MM3 Basophils # (Auto) 0.0 TH/MM3 CBC Comment DIFF FINAL Differential Comment Blood Urea Nitrogen 14 MG/DL Creatinine 0.71 MG/DL Random Glucose 70 MG/DL Calcium Level 8.7 MG/DL Sodium Level 141 MEQ/L Potassium Level 3.5 MEQ/L Chloride Level 106 MEQ/L Carbon Dioxide Level 30.1 MEQ/L Anion Gap 5 MEQ/L Estimat Glomerular Filtration Rate 97 ML/MIN Total Creatine Kinase 84 U/L Troponin I LESS THAN 0.02 NG/ML LESS THAN 0.02 NG/ML Urine Color LIGHT-YELLOW Urine Turbidity CLEAR Urine pH 7.0 Urine Specific [place] 1.019 Urine Protein NEG mg/dL Urine Glucose (UA) NEG mg/dL Urine Ketones NEG mg/dL Urine Occult Blood NEG Urine Nitrite NEG Urine Bilirubin NEG Urine Urobilinogen LESS THAN 2.0 MG/DL Urine Leukocyte Esterase LARGE Urine RBC LESS THAN 1 /hpf Urine WBC 17 /hpf Urine Squamous Epithelial Cells 6 /hpf Urine Renal Epithelial Cells <1 /hpf Urine Bacteria RARE /hpf Urine Mucus FEW /lpf Microscopic Urinalysis Comment CULTURE INDICATED MDM Medical Decision Making Medical Screen Exam Complete: Yes Emergency Medical Condition: Yes Medical Record Reviewed: Yes Differential Diagnosis Panic attack, versus acid reflux, versus acute coronary syndrome, versus malingering Narrative Course During the course of the patient's emergency department visit, the patient's history, examination, and differential diagnosis were reviewed with the patient. The patient was placed on a cardiac surgeon with oximetry and frequent blood pressure monitoring. The patient had IV access obtained and blood work sent for analysis. Patient had an EKG done on arrival. The patient's EKG reveals a sinus rhythm with a sinus arrhythmia, nonspecific downsloping ST segments in lead III, no acute ST segment elevation, T waves are inverted in V2, The patient was initially provided aspirin 324 mg p.o. 1. The patient's studies were reviewed and remarkable for a urinalysis that showed evidence of a urinary tract infection. The patient was treated with Macrobid. CBC, chemistry, initial set of cardiac enzymes were negative. A repeat troponin was done and continues to be less than 0.02. Repeat EKG shows no acute changes. The patient will be discharged home with a prescription for antibiotic for urinary tract infection. The patient is resting comfortably and feels better, is alert and in no distress. The patient's results and examination findings were discussed with the patient. The repeat examination is unremarkable and benign. The history, exam, diagnostic testing, and current condition do not suggest any significant pathology to warrant further testing, continued ED treatment, admission, or surgical evaluation at this point. The vital signs have been stable. The patient does not have uncontrollable pain, intractable vomiting, or other significant symptoms. The patient's condition is stable and appropriate for discharge. The patient will pursue further outpatient evaluation with a primary care physician or other designated or consulting physician as indicated in the discharge instructions. The patient expressed understanding and was agreeable with this plan. Diagnosis Primary Impression: Atypical chest pain Additional Impression: Urinary tract infection Qualified Codes: N39.0 - Urinary tract infection, site not specified Referrals: [facility] 3 days Patient Instructions: Chest Pain (ED), General Instructions, Urinary Tract Infection in Women (ED) Scripts Nitrofurantoin Monohydrate Macrocrystals (Macrobid) 100 Mg Cap 100 MG PO BID for Infection for 10 Days, #20 CAP 0 Refills Prov: Kary Jimenez MD 12/05/17 Disposition: DISCHARGE HOME Condition: Stable Kary Jimenez MD Dec 05, 2017 04:45
[2017-12-05 04:53] VITALS: BP 121/79; PULSE 69; RESP 18; O2SAT 99
[2017-12-05] MEDS ORDERED: ASPIRIN 81 MG CHEW TAB CHEW ONE (05:00)
[2017-12-05 05:21] LABS: BACTERIA, URINE RARE /hpf; BILIRUBIN, URINE NEG (NEG); BLOOD, URINE NEG (NEG); GLUCOSE,URINE NEG (NEG); KETONE, URINE NEG (NEG); MUCUS URINE FEW /lpf (OCC); NITRITE,URINE NEG (NEG); RENAL EPITHELIAL CELLS <1 /hpf; SQUAMOUS EPITHELIAL CELL URINE 6 /hpf (0-5); URINE COLOR LIGHT-YELLOW (YELLW/STRAW); URINE LEUKOCYTE ESTERASE LARGE (NEG)
[2017-12-05] MEDS ORDERED: MACR100C2 PO (05:49)
[2017-12-05] MEDS ORDERED: NITROFURANTOIN MONOHYD MACROCR 100 MG CAP PO ONE (06:00)
[2017-12-05 07:38] VITALS: BP 118/76; PULSE 68; RESP 18; O2SAT 98
--- NOTE | 2017-12-05 22:15 | EKG ---
Date Performed: 12/05/2017 Time Performed: 05:33:46 PTAGE: 27 years EKG: SINUS BRADYCARDIA MODERATE ST DEPRESSION ABNORMAL ECG PREVIOUS TRACING : 11/17/2016 17.36 Compared to previous tracing, rate slower DOCTOR: Libby Delaney Interpretating Date/Time 12/05/2017 22:14:07
--- NOTE | 2017-12-05 22:26 | EKG ---
Date Performed: 12/05/2017 Time Performed: 02:39:22 PTAGE: 27 years EKG: Sinus rhythm WITH SINUS ARRHYTHMIA PACS MODERATE ST DEPRESSION ABNORMAL ECG Since the PREVIOUS TRACING , no significant change noted DOCTOR: Libby Delaney Interpretating Date/Time 12/05/2017 22:24:10
== END 2017-12-05 09:20 | disposition home or self-care (01) ==
LOC: NEPC 02:20
DX: R07.89 Other chest pain (principal); N39.0 Urinary tract infection, site not specified; F31.9 Bipolar disorder, unspecified; Z72.0 Tobacco use
CPT/HCPCS: 80048; 81001; 82550; 84484; 84703; 85025; 87086; 93005; 99284

== ENCOUNTER 2018-07-24 18:20 | Inpatient (IN) ==
[2018-07-24 19:37] LABS: Amphetamine Screen,Urine Neg (Neg); Barbiturate Screen,Urine Neg (Neg); Cannabinoid Screen,Urine Neg (Neg); Cocaine Screen,Urine Neg (Neg)
[2018-07-24 19:38] LABS: Baso % (Auto) 0.4 % (0.0-2.0); Eos # (Auto) 0.1 th/mm3 (0.0-0.4); Eos % (Auto) 0.9 % (0.0-4.0); Hematocrit 39.4 % (35.0-46.0); Hemoglobin 13.1 gm/dL (11.6-15.3); Lymph # (Auto) 2.4 th/mm3 (1.0-4.8); Lymph % (Auto) 31.8 % (9.0-44.0); Mean Corpuscular HGB Conc 33.1 % (32.0-36.0); Mean Corpuscular Hemoglobin 30.3 pg (27.0-34.0); Mean Corpuscular Volume 91.6 fL (80.0-100.0); Mean Platelet Volume 8.4 fL (7.0-11.0); Mono # (Auto) 0.7 th/mm3 (0.0-0.9); Mono % (Auto) 9.2 % (0.0-8.0); Neut # (Auto) 4.3 th/mm3 (1.8-7.7); Neut % (Auto) 57.7 % (16.0-70.0); Platelet Count 295 th/mm3 (150-450); Red Cell Distribution Width 13.9 % (11.6-17.2); White Blood Count 7.5 th/mm3 (4.0-11.0)
[2018-07-24 19:45] LABS: Opiate Screen,Urine Neg (Neg)
[2018-07-24 19:55] LABS: Anion Gap 9 meq/L (5-15); Aspartate Aminotransferase 52 U/L (15-37); Blood Urea Nitrogen 13 mg/dL (7-18); Calcium 8.5 mg/dL (8.5-10.1); Carbon Dioxide 25.6 meq/L (21.0-32.0); Chloride 106 meq/L (98-107); Glomerular Filtration Rate 64 mL/min (>89); Glucose,Random 94 mg/dL (74-106); Potassium 3.6 meq/L (3.5-5.1); Sodium 141 meq/L (136-145)
[2018-07-24 19:58] LABS: Alanine Aminotransferase 41 U/L (10-53); Alkaline Phosphatase 71 U/L (45-117); Total Protein 7.6 g/dL (6.4-8.2)
--- NOTE | 2018-07-24 20:24 | ED ---
HPI General Chief Complaint: Psychiatric Symptoms Stated Complaint: Psych Eval/DBPD Time Seen by Provider: 07/24/18 20:24 Source: patient and police Mode of arrival: ambulatory Limitations: altered mental status History of Present Illness HPI Narrative: This is a 28-year-old white female who presents emergency department under [place] act by PD. Patient was dancing and flailing her arms out in the road and there was concerned that the patient may suffer harm. Patient is alert but psychotic. The psychiatric staff has asked me to medicate the patient prior to me evaluating her. She is given Geodon 20 mg IM. Related Data Home Medications Medication Instructions Recorded Confirmed Unable to Obtain Home Meds 07/24/18 07/24/18 Allergies Allergy/AdvReac Type Severity Reaction Status Date / Time No Known Allergies Allergy Verified 07/24/18 18:34 Review of Systems ROS Unobtainable ROS Unobtainable: unobtainable due to mental status PMFSH Medical History Medical History Patient denies medical problems (Acute) Surgical History Surgical History No history of previous surgery (Acute) Social History Social History Recent Travel in [facility] within the Last 8 Weeks: No Recent Out of Country Travel within the Last 8 Weeks: No Exam Narrative Exam Narrative: GENERAL: Well-nourished, well-developed patient. SKIN: Warm and dry. HEAD: Normocephalic and atraumatic. EYES: No scleral icterus. No injection or drainage. ENT: No nasal drainage noted. Mucous membranes pink. Airway patent. NECK: Supple, trachea midline. Moves head freely without obvious discomfort. CARDIOVASCULAR: Regular rate and rhythm without murmurs, gallops, or rubs. RESPIRATORY: Breath sounds equal bilaterally. No accessory muscle use. GASTROINTESTINAL: Abdomen soft, non-tender, nondistended. EXTREMITIES: No cyanosis or edema. BACK: Nontender without obvious deformity. No CVA tenderness. NEURO: Patient is alert and oriented. no sensorimotor deficits. Nonfocal. Normal speech. PSYCH: Patient is sedate but arouses to exam. Patient states that she would like to go back to sleep Course Initial Documented Vital Signs Temperature 98.6 F 07/24/18 18:49 Pulse Rate 86 07/24/18 18:49 Respiratory Rate 16 07/24/18 18:49 Blood Pressure 125/83 07/24/18 18:49 Pulse Oximetry 98 07/24/18 18:49 Last Documented Vital Signs Temperature 98.6 F 07/24/18 18:49 Pulse Rate 86 07/24/18 18:49 Respiratory Rate 16 07/24/18 18:49 Blood Pressure 125/83 07/24/18 18:49 Pulse Oximetry 98 07/24/18 18:49 Medical Decision Making MDM Narrative Medical decision making narrative: We will perform routine laboratory testing for medical clearance. I have been asked by the nursing staff to medicate the patient due to her bizarre behavior. Patient is given 20 mg of Geodon IM. Medical Screen Exam Complete: Yes Emergency Medical Condition: Yes Differential Diagnosis Differential Diagnosis: MDM: High Differential diagnoses: Schizophrenia, schizoaffective disorder, bipolar, anxiety, depression, adjustment reaction, mood disorder NOS, ODD, depressive disorder NOS, psychosis NOS, substance induced mood disorder, infection, electrolyte abnormality, malingering. Mental health screening discussed with the patient. Psychiatric screen ordered. Lab Data Result diagrams: 07/24/18 18:58 07/24/18 18:58 Lab Results 07/24/18 07/24/18 07/24/18 Range/Units 18:58 18:58 18:58 WBC 7.5 (4.0-11.0) th/mm3 RBC 4.30 (4.00-5.30) mil/mm3 Hgb 13.1 (11.6-15.3) gm/dL Hct 39.4 (35.0-46.0) % MCV 91.6 (80.0-100.0) fL MCH 30.3 (27.0-34.0) pg MCHC 33.1 (32.0-36.0) % RDW 13.9 (11.6-17.2) % Plt Count 295 (150-450) th/mm3 MPV 8.4 (7.0-11.0) fL Neut % (Auto) 57.7 (16.0-70.0) % Lymph % (Auto) 31.8 (9.0-44.0) % Curry % (Auto) 9.2 H (0.0-8.0) % Eos % (Auto) 0.9 (0.0-4.0) % Baso % (Auto) 0.4 (0.0-2.0) % Neut # (Auto) 4.3 (1.8-7.7) th/mm3 Lymph # (Auto) 2.4 (1.0-4.8) th/mm3 Curry # (Auto) 0.7 (0.0-0.9) th/mm3 Eos # (Auto) 0.1 (0.0-0.4) th/mm3 Baso # (Auto) 0.0 (0.0-0.2) th/mm3 WBC Differential . Differential Comment Auto diff final Sodium 141 (136-145) meq/L Potassium 3.6 (3.5-5.1) meq/L Chloride 106 (98-107) meq/L Carbon Dioxide 25.6 (21.0-32.0) meq/L Anion Gap 9 (5-15) meq/L BUN 13 (7-18) mg/dL Creatinine 1.01 H (0.50-1.00) mg/dL Estimated GFR 64 L (>89) mL/min Random Glucose 94 (74-106) mg/dL Calcium 8.5 (8.5-10.1) mg/dL Total Bilirubin 0.8 (0.2-1.0) mg/dL AST 52 H (15-37) U/L ALT 41 (10-53) U/L Alkaline Phosphatase 71 (45-117) U/L Total Protein 7.6 (6.4-8.2) g/dL Albumin 4.0 (3.4-5.0) g/dL Urine Opiates Screen (Neg) Ur Barbiturates Screen (Neg) Ur Amphetamines Screen (Neg) U Benzodiazepines Scrn (Neg) Urine Cocaine Screen (Neg) U Cannabinoids Screen (Neg) Serum Alcohol Less than 3 (0-5) mg/dL 07/24/18 Range/Units 19:04 WBC (4.0-11.0) th/mm3 RBC (4.00-5.30) mil/mm3 Hgb (11.6-15.3) gm/dL Hct (35.0-46.0) % MCV (80.0-100.0) fL MCH (27.0-34.0) pg MCHC (32.0-36.0) % RDW (11.6-17.2) % Plt Count (150-450) th/mm3 MPV (7.0-11.0) fL Neut % (Auto) (16.0-70.0) % Lymph % (Auto) (9.0-44.0) % Curry % (Auto) (0.0-8.0) % Eos % (Auto) (0.0-4.0) % Baso % (Auto) (0.0-2.0) % Neut # (Auto) (1.8-7.7) th/mm3 Lymph # (Auto) (1.0-4.8) th/mm3 Curry # (Auto) (0.0-0.9) th/mm3 Eos # (Auto) (0.0-0.4) th/mm3 Baso # (Auto) (0.0-0.2) th/mm3 WBC Differential Differential Comment Sodium (136-145) meq/L Potassium (3.5-5.1) meq/L Chloride (98-107) meq/L Carbon Dioxide (21.0-32.0) meq/L Anion Gap (5-15) meq/L BUN (7-18) mg/dL Creatinine (0.50-1.00) mg/dL Estimated GFR (>89) mL/min Random Glucose (74-106) mg/dL Calcium (8.5-10.1) mg/dL Total Bilirubin (0.2-1.0) mg/dL AST (15-37) U/L ALT (10-53) U/L Alkaline Phosphatase (45-117) U/L Total Protein (6.4-8.2) g/dL Albumin (3.4-5.0) g/dL Urine Opiates Screen Neg (Neg) Ur Barbiturates Screen Neg (Neg) Ur Amphetamines Screen Neg (Neg) U Benzodiazepines Scrn Neg (Neg) Urine Cocaine Screen Neg (Neg) U Cannabinoids Screen Neg (Neg) Serum Alcohol (0-5) mg/dL Discharge Plan Discharge Disposition Patient Disposition: 30 Still Patient Discharge Condition Condition: Stable Physicians Team ED Provider: Lea Davis ED Midlevel Provider: Duong Alfonso Primary Care Provider: UNKNOWN, Rxs /Orders / Referrals /Forms Prescriptions: No Action Unable to Obtain Home Meds RF: 0 Status ED Status: With Doctor
--- NOTE | 2018-07-25 14:50 | P.HPPSY ---
Provisional Diagnosis Admission Date: July 25, 2018 10:10 [place] I.: Bipolar disorder type I, current episode manic Competence Certification of Person's Competence To Provide Express and Informed Consent I have personally examined Kaylah Chinchilla, a person being served at [facility] on, July 25, 2018 1446. Express and informed consent means consent voluntarily given in writing, by a competent person, after sufficient explanation and disclosure of the subject matter involved to enable the person to make a knowing and willful decision without any element of force, fraud, deceit, duress, or other form of constraint or coercion. This person is 18 years of age or older, is not now known to be incompetent to consent to treatment with a guardian advocate, and does not have a health care surrogate or proxy currently making medical treatment decisions. I have found this person to be one of the following: [] Competent to provide express and informed consent, as defined above, for voluntary admission to this facility and is competent to provide express and informed consent for treatment. He/she has the consistent capacity to make well reasoned, willful, and knowing decisions concerning his or her medical or mental health treatment. The person fully and consistently understands the purpose of the admission for examination/placement and is fully capable of personally exercising all rights assured [place] [] Incompetent to provide express and informed consent to voluntary admission, and this is incompetent to provide express and informed consent to treatment. The person must be transferred to involuntary status and a petition for a guardian advocate filed with the Circuit Court. [x] Refusing to provide express and informed consent to voluntary admission but is competent to provide express and informed consent for treatment. The person must be discharged or transferred to involuntary status. Form shall be completed within 24 hours of a person's arrival at the receiving facility and filed in the clinical record of each person: 1. Admitted on a voluntary basis 2. Permitted to provide express and informed consent to his/her own treatment 3. Allowed to transfer from involuntary to voluntary status 4. Prior to permitting a person to consent to his or her own treatment after having been previously found incompetent to consent to treatment. History of Present Illness Capacity: Has capacity History of Present Illness: The patient is a 28-year-old woman, homeless, unemployed, single, known by the service, with a psychiatric history of bipolar disorder, multiple psychiatric hospitalizations, the last hospitalization was in March 2017 here in [place] due to increased delusions and psychosis, she denies previous suicidal attempts, noncompliant with medications, she is not in psychotropics at the moment, she has a strong family history of psychiatric illnesses, her mother and her twin sister are both bipolar, no outpatient care, no significant medical history, who presents emergency department under [place] act by PD. Patient was dancing and flailing her arms out in the road and there was concerned that the patient may suffer harm. Patient is alert but psychotic. The psychiatric staff has asked me to medicate the patient prior to me evaluating her. She is given Geodon 20 mg IM, and posteriorly Ativan 2 mg and also Benadryl 50 mg IM. For this reason on my psychiatric evaluation the patient is kind of sedated, calm, superficially cooperative. The patient is very disorganized, tangential, but fully oriented x3. She says that in the last days she has been "very happy" with 10/10 energy, "making multiple friends , never been happier before". She reports that she has not slept in 2 days. He has not been taking any medications, denies the use of illegal drugs or alcohol. She denies suicidal enemas ideation, she denies visual and auditory hallucinations. She is fully oriented x3 at the moment. As per nurse report, the patient has being very disruptive in the unit, singing, dancing, getting inside other people's room, talkative, very difficult to redirect. I have review the documentation of her previous psychiatric hospitalizations, and in 2017 she was hospitalized by Dr. Ribera very disorganized and delusional she was treated with Geodon and Ativan. PPHx:history of bipolar disorder, multiple psychiatric hospitalizations, the last hospitalization was in March 2017 here in [place] due to increased delusions and psychosis, she denies previous suicidal attempts, noncompliant with medications, she is not in psychotropics at the moment, she has a strong family history of psychiatric illnesses, her mother and her twin sister are both bipolar, no outpatient care PMHx: no significant medical history Family Hx: Her mother and twin sister are bipolar Substance Hx: She denies use of illegal drugs and alcohol, U tox is negative at this time Social Hx: She was born and raised in [facility], she is homeless in the [facility], single, unemployed, - Inpatient Certification I certify that the inpatient services were ordered in accordance with Medicare regulations governing the order. This includes certification that hospital inpatient services are reasonable and necessary and in the case of services not specified as inpatient-only under 42 CFR 419.22(n), that they are appropriately provided as inpatient services in accordance to with the 2-midnight benchmark under 43 CFR 412.3(e) I certify that inpatient psychiatric hospital services are medically necessary. Evaluation and treatment and/or diagnostic testing are expected to improve the patient's condition. The patient needs on a daily basis, active treatment furnished directly by or requiring the supervision of inpatient psychiatric facility personnel. Estimated Total Length of Stay (Days): 7 Plans for Post Hospital Care: Home Review of Systems All other systems reviewed negative except as stated in HPI Psychiatric: Reports anxiety, Reports irritability, Reports mood swings, Reports paranoia PMFSH - History History Provided By: Medical Record - Medical History Medical History: Medical History (Last Reviewed 07/24/18 @ 20:22 by RENA De Anda) Patient denies medical problems - Surgical History Surgical History: Surgical History (Last Reviewed 07/24/18 @ 20:22 by RENA De Anda) No history of previous surgery - Tobacco History Second Hand Smoke Exposure: No Tobacco Use In Past 30 Days: Yes Smoking Status: Current some day smoker Tobacco Type: Cigarettes - Alcohol History How Often Do You Have a Drink Containing Alcohol: 2 to 3 times a week - Substance Use History Substance History: No History of Abuse - Travel History Recent Travel in the [place] Within the Last 8 Weeks: No Recent Travel Out of the Country Within the Last 8 Weeks: No - Immunization History Tetanus Immunization: <5 Years Medications and Allergies Active Medications: Active Medications Al Hydrox/Mg Hydrox/Simethicone (Mag-Al Plus Susp Liq) 30 ml PO Q6H PRN PRN Reason: DYSPEPSIA Al Hydroxide/Mg Hydroxide (Milk Of Magnesia Liq) 30 ml PO Q12H PRN PRN Reason: Mild Constipation Aripiprazole (Abilify) 5 mg PO DAILY KIRSTIN Cylinder Carbonate (Cylinder Carbonate) 300 mg PO BID KIRSTIN Allergies Allergy/AdvReac Type Severity Reaction Status Date / Time No Known Allergies Allergy Verified 07/24/18 18:34 Home Medications Medication Instructions Recorded Confirmed Type Unable to Obtain Home Meds 07/24/18 07/24/18 History Results - Labs CBC & Chem 7: 07/24/18 18:58 07/24/18 18:58 Labs: Laboratory Results - last 24 hr 07/24/18 07/24/18 07/24/18 18:58 18:58 18:58 WBC 7.5 RBC 4.30 Hgb 13.1 Hct 39.4 MCV 91.6 MCH 30.3 MCHC 33.1 RDW 13.9 Plt Count 295 MPV 8.4 Neut % (Auto) 57.7 Lymph % (Auto) 31.8 Whitley % (Auto) 9.2 H Eos % (Auto) 0.9 Baso % (Auto) 0.4 Neut # (Auto) 4.3 Lymph # (Auto) 2.4 Whitley # (Auto) 0.7 Eos # (Auto) 0.1 Baso # (Auto) 0.0 WBC Differential . Differential Comment Auto diff final Sodium 141 Potassium 3.6 Chloride 106 Carbon Dioxide 25.6 Anion Gap 9 BUN 13 Creatinine 1.01 H Estimated GFR 64 L Random Glucose 94 Calcium 8.5 Total Bilirubin 0.8 AST 52 H ALT 41 Alkaline Phosphatase 71 Total Protein 7.6 Albumin 4.0 Urine Opiates Screen Ur Barbiturates Screen Ur Amphetamines Screen U Benzodiazepines Scrn Urine Cocaine Screen U Cannabinoids Screen Serum Alcohol Less than 3 07/24/18 19:04 WBC RBC Hgb Hct MCV MCH MCHC RDW Plt Count MPV Neut % (Auto) Lymph % (Auto) Whitley % (Auto) Eos % (Auto) Baso % (Auto) Neut # (Auto) Lymph # (Auto) Whitley # (Auto) Eos # (Auto) Baso # (Auto) WBC Differential Differential Comment Sodium Potassium Chloride Carbon Dioxide Anion Gap BUN Creatinine Estimated GFR Random Glucose Calcium Total Bilirubin AST ALT Alkaline Phosphatase Total Protein Albumin Urine Opiates Screen Neg Ur Barbiturates Screen Neg Ur Amphetamines Screen Neg U Benzodiazepines Scrn Neg Urine Cocaine Screen Neg U Cannabinoids Screen Neg Serum Alcohol Exam Vital signs: Vital Signs 07/24/18 18:49 07/24/18 22:48 07/25/18 06:03 Temperature 98.6 F 98.5 F 97.7 F Pulse Rate 86 105 H 83 Respiratory Rate 16 14 Blood Pressure 125/83 125/81 108/73 Pulse Oximetry 98 99 99 Intake & Output 07/24/18 07/25/18 07/25/18 18:59 06:59 18:59 Weight 68.039 kg Narrative: Patient is lethargic, sedated by ETO, - Constitutional no acute distress - Routine HEENT Exam Head: Present: normocephalic Eye: Present: EOMI, normal accommodation ENT: Present: mucous membranes moist Mental Status Examination Appearance: Disheveled, Malodorous Consciousness: Lethargic, Clouded Orientation: Person, Place, Date/Time Motor Activity: Abnormal gait Speech: Slow, Incoherent Language: Adequate Fund of Knowledge: Adequate Attention and Concentration: Inadequate Memory: Unremarkable Mood: Irritable, Manic Affect: Irritable Thought Process & Associations: Loose associations, Disorganized Thought Content: Preoccupations, Delusional Hallucination Type: None Delusion Type: Bizarre, Paranoid, Somatic Suicidal Ideation: No Suicidal Plan: No Suicidal Intention: No Homicidal Ideation: No Homicidal Plan: No Homicidal Intention: No Insight: Poor Judgment: Poor Assessment and Plan - Assessment (1) Bipolar 1 disorder Code(s): F31.9 - Bipolar disorder, unspecified Status: Acute - Plan Plan: On psychiatric evaluation today the patient presents sedated, lethargic, but still able to show manic symptoms such as incoherent speech, disorganized and tangential thought process, able to her report that she has been not sleeping for the last 2 days, hyper energetic, restless, engaging in multiple risky behaviors. And here in the ER before she was medicated with Geodon 20 mg, Ativan 2 mg and Benadryl 50 mg IM, the patient was very intrusive, hyperactive, hyperverbal, singing, dancing, getting inside another patient's room, unable to follow verbal directions. The patient is definitely manic, unable to take care of herself given her level of disorganization. She needs to be admitted in psychiatry for stabilization and safety. Start Cylinder 300 mg bid for mood stabilization Start Abilify 5 mg daily for psychosis and lesia Order test and EKG Will consult psychiatry for second opinion. Justification for Continued Inpatient Stay: To be admitted in psychiatry
[2018-07-26] MEDS ORDERED: Haloperidol Inj 5 MG/ML Ampul ONE ×2 (01:56→23:43)
[2018-07-26] MEDS ORDERED: Haloperidol Inj 5 MG/ML Ampul IM ONE ×2 (02:00→23:45)
[2018-07-26 07:56] LABS: Calcium 8.3 mg/dL (8.5-10.1); Carbon Dioxide 28.1 meq/L (21.0-32.0); Potassium 3.5 meq/L (3.5-5.1)
[2018-07-26 08:05] LABS: Chol/HDL Ratio 2.26 Ratio; Free T4 (Free Thyroxine) 1.12 ng/dL (0.76-1.46); HDL Cholesterol 51.3 mg/dL (40.0-60.0); Thyroid Stimulating Hormone 3.93 uIU/mL (0.358-3.740)
[2018-07-26] MEDS: ARIPiprazole 5 MG Tablet PO SCH (14:10)
--- NOTE | 2018-07-26 14:17 | P.CONPSY ---
Provisional Diagnosis Admission Date: July 25, 2018 10:10 [place] I.: Bipolar disorder type I, current episode manic History of Present Illness Service: Psychiatry Consult date: 07/26/18 Requesting Physician: Mitesh Garcia Reason for Consult: Second opinion petition supporting Arnold act Primary Care Provider: UNKNOWN History of Present Illness: Patient is a 28-year-old white female known to us from prior hospitalization is admitted to Dr. Santoyo service under the Arnold act. Dr. Santoyo's H&P reviewed and agreed with. Dr. Santoyo assigned first opinion petition supporting [employer] act. He is also requested health care surrogate and guardian advocate. Patient seen by me in the [facility] with nurse Nia. Patient continues manic with rapid pressured speech markedly intrusive showing no insight into her disease especially concerning the fact that she was dancing and prancing in the middle lobe is a 3 or fair. She also did not need multiple ETO was prior to coming on the unit. Thus at this time I feel patient does meet criteria for involuntary psychiatric hospitalization under the Arnold act and I will cosign second opinion petition supporting Arnold act. I also agree that the patient does not have capacity thus I will ask for health care surrogate and guardian advocate Review of Systems All other systems reviewed negative except as stated in HPI PMFSH - History History Provided By: Patient - Medical History Medical History: Medical History (Last Reviewed 07/24/18 @ 20:22 by RENA De Anda) Patient denies medical problems - Surgical History Surgical History: Surgical History (Last Reviewed 07/24/18 @ 20:22 by RENA De Anda) No history of previous surgery - Tobacco History Second Hand Smoke Exposure: No Tobacco Use In Past 30 Days: No Smoking Status: Never smoker Tobacco Type: Cigarettes - Alcohol History How Often Do You Have a Drink Containing Alcohol: Monthly or less - Substance Use History Substance History: Active Abuse - Travel History Recent Travel in the [place] Within the Last 8 Weeks: No Recent Travel Out of the Country Within the Last 8 Weeks: No - Immunization History Tetanus Immunization: <5 Years Medications and Allergies Active Medications: Active Medications Al Hydrox/Mg Hydrox/Simethicone (Mag-Al Plus Susp Liq) 30 ml PO Q6H PRN PRN Reason: DYSPEPSIA Al Hydroxide/Mg Hydroxide (Milk Of Magnesia Liq) 30 ml PO Q12H PRN PRN Reason: Mild Constipation Aripiprazole (Abilify) 5 mg PO DAILY KIRSTIN [place] Carbonate ([place] Carbonate) 300 mg PO BID [facility] Last Admin: 07/26/18 08:18 Dose: Not Given Allergies Allergy/AdvReac Type Severity Reaction Status Date / Time No Known Allergies Allergy Verified 07/24/18 18:34 Home Medications Medication Instructions Recorded Confirmed Type Unable to Obtain Home Meds 07/24/18 07/24/18 History Exam Vital signs: Vital Signs 07/25/18 17:48 07/26/18 06:00 Temperature 98.3 F 98.1 F Pulse Rate 88 88 Respiratory Rate 18 18 Blood Pressure 122/80 120/72 Pulse Oximetry 97 Intake & Output 07/25/18 07/26/18 07/26/18 18:59 06:59 18:59 Weight 62.7 kg Other: Weight On Admission 62.7 kg Narrative: Patient seen and [facility] she is in no acute distress, patient no respiratory distress, no complaints of chest pain or abdominal pain. Patient moving all 4 extremities without difficulty Mental Status Examination Appearance: Disheveled, Malodorous Consciousness: Alert, Clouded Orientation: Person, Place, Date/Time Motor Activity: Normal gait Speech: Pressured, Rapid Language: Adequate Fund of Knowledge: Adequate Attention and Concentration: Inadequate Memory: Unremarkable Mood: Irritable, Manic Affect: Other (Increased range and intensity) Thought Process & Associations: Loose associations, Disorganized Thought Content: Preoccupations, Delusional Hallucination Type: None Delusion Type: Bizarre, Paranoid, Somatic Suicidal Ideation: No Suicidal Plan: No Suicidal Intention: No Homicidal Ideation: No Homicidal Plan: No Homicidal Intention: No Insight: Poor Judgment: Poor Assessment and Plan - Assessment (1) Bipolar 1 disorder Code(s): F31.9 - Bipolar disorder, unspecified Status: Acute - Plan Plan: Patient does meet criteria for inpatient involuntary psychiatric hospitalization thus I will cosign second opinion petition supporting [employer] Justification for Continued Inpatient Stay: At this time patient would decompensate if placed in a lower level of care Discharge Planning: To be determined Request Healthcare Surrogate/Guardian Advocate?: Yes
[2018-07-27] MEDS: ARIPiprazole 5 MG Tablet PO SCH (15:16)
--- NOTE | 2018-07-27 15:54 | ECG ---
Date Performed: 07/26/2018 Time Performed: 13:28:07 PTAGE: 28 years EKG: Vertical QRS axis Minor Nonspecific ST depression Borderline Atrial abnoornality PREVIOUS TRACING : 12/05/2017 05.33 Compared to previous tracing, atrial abnormality is n ew. Otherwise no significant serial change DOCTOR: Krzysztof Ramsey Interpretating Date/Time 07/27/2018 15:52:47
--- NOTE | 2018-07-27 16:27 | P.PNPSY ---
Subjective Remarks: Reviewed electronic medical records and discussed case with staff. Follow-up was conducted in the [facility] with CHANTELL Montoya present. Patient reports that she feels she is doing better. After multiple days of receiving emergency treatment orders, she seems to have regained some insight into her condition. Therefore, I discussed with her taking prescribed meds. She agreed to this and has signed consents. She does seem to be more organized today. Mental Status Examination Appearance: Disheveled, Malodorous Consciousness: Alert, Clouded Orientation: Person, Place, Date/Time Motor Activity: Normal gait Speech: Pressured, Rapid Language: Adequate Fund of Knowledge: Adequate Attention and Concentration: Inadequate Memory: Unremarkable Mood: Irritable, Manic Affect: Other (Increased range and intensity) Thought Process & Associations: Loose associations, Disorganized Thought Content: Preoccupations, Delusional Hallucination Type: None Delusion Type: Bizarre, Paranoid, Somatic Suicidal Ideation: No Suicidal Plan: No Suicidal Intention: No Homicidal Ideation: No Homicidal Plan: No Homicidal Intention: No Insight: Poor Judgment: Poor Assessment and Plan - Assessment (1) Bipolar 1 disorder Code(s): F31.9 - Bipolar disorder, unspecified Status: Acute - Plan Plan: Patient will be reevaluated by the attending psychiatrist. Continue with current treatment plan. Justification for Continued Inpatient Stay: Moving this patient to a less restrictive environment would likely result in decompensation. Request Healthcare Surrogate/Guardian Advocate?: Yes
[2018-07-28] MEDS: ARIPiprazole 5 MG Tablet PO SCH (08:11)
--- NOTE | 2018-07-28 13:34 | P.PNPSY ---
Subjective Remarks: Reviewed electronic record and discussed with nursing staff. Rounded with CHANTELL Adrian. Patient has multiple concerns: pain in the feet , generalized pain, chap lips. The foot pain was relieved after the nurse helped he wash her fee. She told the nurse that she was having a heart attack which was relieved by a glass of gingerale. She has had several outburts over the phone talking to someone named Tj. She is redirectable. She is compliant with her medications and feels that the [place] and Abilify are helping her moods swings. Review of Systems All other systems reviewed negative except as stated in HPI Mental Status Examination Appearance: Disheveled, Malodorous Consciousness: Alert, Clouded Orientation: Person, Place, Date/Time Motor Activity: Normal gait Speech: Pressured, Rapid Language: Adequate Fund of Knowledge: Adequate Attention and Concentration: Inadequate Memory: Unremarkable Mood: Irritable, Manic Affect: Other (Increased range and intensity) Thought Process & Associations: Loose associations, Disorganized Thought Content: Preoccupations, Delusional Hallucination Type: None Delusion Type: Bizarre, Paranoid, Somatic Suicidal Ideation: No Suicidal Plan: No Suicidal Intention: No Homicidal Ideation: No Homicidal Plan: No Homicidal Intention: No Insight: Poor Judgment: Poor Assessment and Plan - Assessment (1) Bipolar 1 disorder Code(s): F31.9 - Bipolar disorder, unspecified Status: Acute - Plan Plan: Patient will be reevaluated by the attending psychiatrist. Continue with current treatment plan. Justification for Continued Inpatient Stay: Moving patient to a less restrictive environment may result in her decompensation. Request Healthcare Surrogate/Guardian Advocate?: Yes
[2018-07-29] MEDS ORDERED: Haloperidol Inj 5 MG/ML Ampul ONE (00:38)
[2018-07-29] MEDS ORDERED: Haloperidol Inj 5 MG/ML Ampul IM ONE (00:45)
[2018-07-29] MEDS: ARIPiprazole 5 MG Tablet PO SCH (08:30)
--- NOTE | 2018-07-29 12:17 | P.TTN ---
- Patient Problems Problems: 1. Discharge planning 2. Medication compliance 3. Knowledge deficit 4. Lack of coping skills - Progress Toward Goals Provider Present: Dr. Keon Ribera (Patient is manic and needs to remain for further stabilization.) Psychiatric Counselors Present: Dino Cantu Jr., [facility] (Patient reports she will return to her mother's residence upon discharge.) Group Spec/RT/OT/[place] Present: TRACE Santiago (Patient attends select groups and has difficulty being redirected at this time.) - Documentation Teaching Recipient: Patient
[2018-07-29] MEDS: Acetaminophen 325 MG Tablet PO PRN (13:47)
--- NOTE | 2018-07-29 14:17 | P.PNPSY ---
Subjective Remarks: Patient seen in the [facility] with nurse Kaylah and medical student Vera, chart reviewed, patient compliant with medication. Patient still disorganized with rapid pressured speech and somewhat manipulative and irritating at times being somewhat aggressive with her talking with me. We will increase Abilify to 10 mg daily. We will check a lithium blood level on 07/31 Review of Systems All other systems reviewed negative except as stated in HPI Mental Status Examination Appearance: Disheveled Consciousness: Alert Orientation: Person, Place, Date/Time Motor Activity: Normal gait Speech: Pressured, Rapid Language: Adequate Fund of Knowledge: Adequate Attention and Concentration: Inadequate Memory: Unremarkable Mood: Angry, Irritable, Manic Affect: Other (Increased range and intensity) Thought Process & Associations: Loose associations, Disorganized Thought Content: Preoccupations, Delusional Hallucination Type: None Delusion Type: Bizarre, Paranoid, Somatic Suicidal Ideation: No Suicidal Plan: No Suicidal Intention: No Homicidal Ideation: No Homicidal Plan: No Homicidal Intention: No Insight: Poor Judgment: Poor Assessment and Plan - Assessment (1) Bipolar affective disorder, manic, severe, with psychotic behavior Code(s): F31.2 - Bipolar disorder, current episode manic severe with psychotic features Status: Acute - Plan Plan: Patient remains psychotic delusional and manic with no insight into her disease. See medication adjustment above Justification for Continued Inpatient Stay: At this time patient would decompensated placed on a lower level of care Discharge Planning: To be determined Request Healthcare Surrogate/Guardian Advocate?: Yes
[2018-07-30] MEDS: Aluminum/Magnesium/Simethacone Susp 30 ML UDC PO PRN (00:31)
[2018-07-30] MEDS: ARIPiprazole 10 MG Tablet PO SCH (08:28)
--- NOTE | 2018-07-30 12:21 | P.PNPSY ---
Subjective Remarks: The patient was seen today for psychiatric reevaluation along with a nurse in charge. Case was widely discussed with nurse in charge and also with counselor. On my psychiatric evaluation the patient is found quite distractible , with expansive and labile mood/affect, disorganized, with pressured speech. 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 She is fully oriented x3, very perseverant and repetitive. As per nurse report, the patient has being agitated in the unit, episodically hostile and aggressive needing verbal redirection, however she has been compliant her medications, with no significant reported side effects. Mental Status Examination Appearance: Disheveled Consciousness: Alert Orientation: Person, Place, Date/Time Motor Activity: Normal gait Speech: Pressured, Rapid Language: Adequate Fund of Knowledge: Adequate Attention and Concentration: Inadequate Memory: Unremarkable Mood: Angry, Irritable, Manic Affect: Other (Increased range and intensity) Thought Process & Associations: Loose associations, Disorganized Thought Content: Racing thoughts, Preoccupations, Delusional Hallucination Type: None Delusion Type: Bizarre, Paranoid, Somatic Suicidal Ideation: No Suicidal Plan: No Suicidal Intention: No Homicidal Ideation: No Homicidal Plan: No Homicidal Intention: No Insight: Poor Judgment: Poor Assessment and Plan - Assessment (1) Bipolar affective disorder, manic, severe, with psychotic behavior Code(s): F31.2 - Bipolar disorder, current episode manic severe with psychotic features Status: Acute - Plan Plan: The patient continues to be acutely manic, with prominent attention deficit, labile/expansive affect, pressured speech, flight of ideas, increased energy, we reported hyper sexuality in the unit as well as agitation and at times aggressive behavior. The patient has showed a very modest improvement since admitted. We will increase lithium to 600 mg twice daily. Continue Abilify 10 mg daily. Will add clonazepam 0.5 mg 3 times daily to help with his sleep/ agitation in the unit. Order lithium level. Order an EKG for QTC baseline. Justification for Continued Inpatient Stay: Patient is acutely manic/psychotic, she needs to continue psychiatric hospitalization for stabilization. Request Healthcare Surrogate/Guardian Advocate?: Yes
[2018-07-30] MEDS: clonazePAM 0.5 MG Tablet PO SCH ×2 (13:15→21:08)
[2018-07-30] MEDS: Acetaminophen 325 MG Tablet PO PRN (15:58)
[2018-07-31] MEDS: clonazePAM 0.5 MG Tablet PO SCH ×3 (05:58→22:11)
[2018-07-31] MEDS: ARIPiprazole 10 MG Tablet PO SCH (08:08)
--- NOTE | 2018-07-31 12:55 | P.PNPSY ---
Subjective Remarks: Patient was seen today for psychiatric reevaluation. The patient refused to go to court she was determined by the siding mechanic to continue on the psychiatric hospitalization for stabilization and it continuance for a week. The patient was seen in the psychiatric unit, initially irritable, oppositional, stating that she does not want to talk to me that she does not trust me. She was able to respond to verbal de-escalation and reports that she has been sleeping better , last night and slept about 3 hours, "but my head is not okay". Patient continues to have pressured speech, to be very tangential, with prominent loosening of associations, labile affect been quite delusional. Patient also having sexual preoccupations, she stated that she had sex with multiple meds before coming to the hospital and she would like to have an STD test. She has been compliant with her medications, no significant side effects. [place] level is 0.4 Mental Status Examination Appearance: Disheveled Consciousness: Alert Orientation: Person, Place, Date/Time Motor Activity: Normal gait Speech: Pressured, Rapid Language: Adequate Fund of Knowledge: Adequate Attention and Concentration: Inadequate Memory: Unremarkable Mood: Angry, Irritable, Manic Affect: Other (Increased range and intensity) Thought Process & Associations: Loose associations, Disorganized Thought Content: Racing thoughts, Preoccupations, Delusional Hallucination Type: None Delusion Type: Bizarre, Paranoid, Somatic Suicidal Ideation: No Suicidal Plan: No Suicidal Intention: No Homicidal Ideation: No Homicidal Plan: No Homicidal Intention: No Insight: Poor Judgment: Poor Assessment and Plan - Assessment (1) Bipolar affective disorder, manic, severe, with psychotic behavior Code(s): F31.2 - Bipolar disorder, current episode manic severe with psychotic features Status: Acute - Plan Plan: Patient continues to be acutely manic with prominent loosening of associations, disorganized speech, irritability, potential somatic delusions. I will increase today the Abilify to 15 mg. Continue lithium 600 mg twice daily. [place] level is 0.4. Will inform medical thing about patient's concerns of having an STD. Justification for Continued Inpatient Stay: Patient continues to be acutely manic and psychotic. Request Healthcare Surrogate/Guardian Advocate?: Yes
--- NOTE | 2018-07-31 15:43 | ECG ---
Date Performed: 07/30/2018 Time Performed: 13:32:57 PTAGE: 28 years EKG: NORMAL Sinus rhythm WITH A SINUS PAUSE NONSPECIFIC ST ABNORMALITY, CANNOT EXCLUDE ISCHEMIA Compared to previous tracing, sinus pause is new. There is slight variation in the ST abnormality ABNORMAL ECG PREVIOUS TRACING : 07/26/2018 13.28 DOCTOR: Suman Jimenez Interpretating Date/Time 07/31/2018 15:42:47
[2018-07-31] MEDS: Acetaminophen 325 MG Tablet PO PRN (16:02)
--- NOTE | 2018-07-31 16:51 | P.CON ---
History of Present Illness Service: [facility] Consult date: 07/31/18 Requesting Physician: Mitesh Garcia Reason for Consult: Concerned about STD, herpes Primary Care Provider: UNKNOWN Chief Complaint: "I think I have herpes" History of Present Illness: Patient is a 28-year-old female with no known past medical history and surgical history who initially came into the hospital under [place] act by police department. Per review of records, patient was dancing and flailing her arms out in the road and there was concern that the patient may suffer harm. She is now admitted to inpatient psychiatry unit for further evaluation. Consulted for assistance with concerns for STD, herpes. Patient seen and examined today. Pacing. Appears anxious. States that she has herpes because her ex-boyfriend told her that he has herpes and that he is having sex with prostitutes. Patient states that she was never diagnosed with herpes but she was in long-term before and thinks that she may have had herpes now. Patient denies any itching, vaginal discharge, vaginal odor, blisters, pain in her vagina, painful intercourse. Patient reports she wants to be tested with HIV and hepatitis. States that she had 2 hepatitis vaccines for hepatitis B, and never completed a third vaccine. Denies pain and discomfort. Denies SOB/ dyspnea. Denies chest pain, palpitations, headaches, dizziness. Denies fevers, chills, n/v/d. Denies hematuria, dysuria. Review of Systems All other systems reviewed negative except as stated in HPI PMFSH - History History Provided By: Patient - Medical History Medical History: Medical History (Last Reviewed 07/31/18 @ 16:46 by BABAK Batista) Patient denies medical problems - Surgical History Surgical History: Surgical History (Last Reviewed 07/31/18 @ 16:46 by BABAK Batista) No history of previous surgery - Family History Family History: Family History (Last Updated 07/31/18 @ 16:46 by BABAK Batista) Mother Breast cancer - Social History I have reviewed the patient's Social History: Yes - Tobacco History Second Hand Smoke Exposure: No Tobacco Use In Past 30 Days: No Smoking Status: Never smoker Tobacco Type: Cigarettes - Alcohol History How Often Do You Have a Drink Containing Alcohol: Monthly or less - Substance Use History Substance History: Active Abuse - Travel History Recent Travel in the [facility] Within the Last 8 Weeks: No Recent Travel Out of the Country Within the Last 8 Weeks: No - Immunization History Tetanus Immunization: Unsure Hx Influenza Vaccine This Season: Yes Medications and Allergies Active Medications: Active Medications Acetaminophen (Tylenol) 650 mg PO Q4H PRN PRN Reason: PAIN 1-10 AND/OR FEVER >101F Last Admin: 07/31/18 16:02 Dose: 650 mg Al Hydrox/Mg Hydrox/Simethicone (Mag-Al Plus Susp Liq) 30 ml PO Q6H PRN PRN Reason: DYSPEPSIA Last Admin: 07/30/18 00:31 Dose: 30 ml Al Hydroxide/Mg Hydroxide (Milk Of Magnesia Liq) 30 ml PO Q12H PRN PRN Reason: Mild Constipation Aripiprazole (Abilify) 15 mg PO DAILY IKRSTIN Clonazepam (Klonopin) 0.5 mg PO Q8HR KIRSTIN Last Admin: 07/31/18 13:47 Dose: 0.5 mg Diphenhydramine HCl (Benadryl) 50 mg PO HS PRN PRN Reason: SLEEP Last Admin: 07/30/18 21:08 Dose: 50 mg [place] Carbonate ([place] Carbonate) 600 mg PO BID KIRSTIN Last Admin: 07/31/18 08:08 Dose: 600 mg Allergies Allergy/AdvReac Type Severity Reaction Status Date / Time No Known Allergies Allergy Verified 07/24/18 18:34 Home Medications Medication Instructions Recorded Confirmed Type Unable to Obtain Home Meds 07/24/18 07/24/18 History Physical Exam Vital signs: Vital Signs 07/30/18 17:45 07/30/18 18:06 Temperature 97.7 F 97.7 F Pulse Rate 94 H 94 H Respiratory Rate 17 17 Blood Pressure 129/87 129/87 Pulse Oximetry 99 99 Narrative: GENERAL: This is a well-nourished, well-developed patient, in no apparent distress. SKIN: Warm and dry. HEENT: Normocephalic. Pupils equal round and reactive. Nose without bleeding. Airway patent. NECK: Trachea midline. CARDIOVASCULAR: Regular rate and rhythm without murmurs, gallops, or rubs. RESPIRATORY: Clear to auscultation. Breath sounds equal bilaterally. No wheezes , rales, or rhonchi. GASTROINTESTINAL: Abdomen soft, non-tender, nondistended. Bowel Sounds normoactive x4. [facility] SCIENTIST: No lesions or discharges noted on exam. No blisters, vaginal erythema or edema. None tender to palpate labia. MUSCULOSKELETAL: Extremities without clubbing, cyanosis, or edema. NEUROLOGICAL: Awake and alert. No focal neuro deficit. Moves all extremities. Fast speech. Results - Labs CBC & Chem 7: 07/24/18 18:58 07/26/18 06:55 Labs: Laboratory Results - last 24 hr 07/31/18 08:20 [place] 0.4 L Assessment and Plan - Plan Patient is a 28-year-old female with no known past medical history and surgical history who initially came into the hospital under [place] act by police department. Per review of records, patient was dancing and flailing her arms out in the road and there was concern that the patient may suffer harm. She is now admitted to inpatient psychiatry unit for further evaluation. Consulted for assistance with concerns for STD, herpes. Bipolar disorder -Managed by psychiatry team STD, r/o Sexually active, multiple partners -No palpable lesions on exam, no areas, nontender to palpate labia -Denies itching, pain, discharges -Discussed and explained with patient that the brown spot she is seeing on her labia are hair follicles that are short. States she has been shaving a lot. -Check for HIV, hepatitis -Will be referred to PCP/[facility] SCIENTIST for pelvic exam and Pap DVT Prop ambulatory Code Status: Full Code Discussed Condition With: Patient, nurse Discharge Planning: DC disposition by primary team
[2018-07-31 22:52] LABS: Hepatitis A IgM Antibody Nonreactive (Nonreactive); Hepatitits B Surface Antigen Nonreactive (Nonreactive)
[2018-08-01] MEDS: clonazePAM 0.5 MG Tablet PO SCH ×3 (05:42→22:02)
--- NOTE | 2018-08-01 13:08 | P.PNPSY ---
Subjective Remarks: Reviewed electronic medical records and discussed case with staff. Follow-up was conducted in the hallway. Her nurse reports that she had to receive an ETO at 1 AM this morning. Patient seems more lucid today however, she is perseverative on discharge to the point of becoming argumentative. She reports that she slept well and her appetite's been good. Later, upon finding out that another patient is being discharged she becomes almost belligerent demanding that she be discharged to. Her speech remains somewhat rapid and she shows little insight into her situation. Mental Status Examination Appearance: Disheveled Consciousness: Alert Orientation: Person, Place, Date/Time Motor Activity: Normal gait Speech: Pressured, Rapid Language: Adequate Fund of Knowledge: Adequate Attention and Concentration: Inadequate Memory: Unremarkable Mood: Angry, Irritable, Manic Affect: Other (Increased range and intensity) Thought Process & Associations: Loose associations, Disorganized Thought Content: Racing thoughts, Preoccupations, Delusional Hallucination Type: None Delusion Type: Bizarre, Paranoid, Somatic Suicidal Ideation: No Suicidal Plan: No Suicidal Intention: No Homicidal Ideation: No Homicidal Plan: No Homicidal Intention: No Insight: Poor Judgment: Poor Assessment and Plan - Assessment (1) Bipolar 1 disorder Code(s): F31.9 - Bipolar disorder, unspecified Status: Deleted - Plan Plan: Patient will be reevaluated by the attending psychiatrist. Continue with current treatment plan. Patient remains hypomanic and required emergency treatment order medications at 1:00 this morning. Her lithium level will be checked on Sunday which will be her third day on the medication. May titrate from there. Justification for Continued Inpatient Stay: Moving this patient to a less restrictive environment would likely result in decompensation. Request Healthcare Surrogate/Guardian Advocate?: Yes
--- NOTE | 2018-08-01 15:14 | P.PNIM ---
Subjective Interval history: Follow up STD Patient is resting in bed. She denies vaginal discomfort or discharge. She states she is better today. Discussed HIV and hepatits test results with patient. RN present during exam and interview. Patient jumps from one topic to another. She then states she has to use the bathroom. Physical Exam Vital signs: Last Vital Signs Temp 97.7 F 07/30/18 18:06 Pulse 94 H 07/30/18 18:06 Resp 17 07/30/18 18:06 BP 129/87 07/30/18 18:06 Pulse Ox 99 07/30/18 18:06 Narrative: GENERAL: well-nourished, well-developed patient, in no apparent distress. SKIN: Warm and dry. HEENT: Normocephalic, atraumatic. Pupils equal round and reactive. NECK: Trachea midline. CARDIOVASCULAR: Regular rate and rhythm without murmurs, gallops, or rubs. RESPIRATORY: Clear to auscultation. Breath sounds equal bilaterally. No wheezes , rales, or rhonchi. GASTROINTESTINAL: Abdomen soft, non-tender, nondistended. Bowel Sounds normoactive x4. MUSCULOSKELETAL: Extremities without clubbing, cyanosis, or edema. NEUROLOGICAL: Awake and alert. No focal neuro deficit. Moves all extremities. Fast speech. Results Labs CBC & Chem 7: 07/24/18 18:58 07/26/18 06:55 Assessment and Plan Plan Patient is a 28-year-old female with no known past medical history and surgical history who initially came into the hospital under [place] act by police department. Per review of records, patient was dancing and flailing her arms out in the road and there was concern that the patient may suffer harm. She is now admitted to inpatient psychiatry unit for further evaluation. Consulted for assistance with concerns for STD, herpes. Bipolar disorder -Managed by psychiatry team STD, r/o - evaluated 08/01/18 Sexually active, multiple partners -No palpable lesions on exam, no areas, nontender to palpate labia 07/31 -Denies itching, pain, discharges -HIV, hepatitis negative -Will be referred to PCP/[facility] for pelvic exam and Pap DVT Prop ambulatory Progress Note: Quality VTE Deep Vein Thrombosis/Pulmonary Embolism Present on Admission: No
[2018-08-01] MEDS: Acetaminophen 325 MG Tablet PO PRN ×2 (18:10→23:23)
[2018-08-02] MEDS: clonazePAM 0.5 MG Tablet PO SCH ×3 (05:37→21:05)
[2018-08-02] MEDS: Acetaminophen 325 MG Tablet PO PRN ×2 (09:05→17:44)
[2018-08-02] MEDS: Aluminum/Magnesium/Simethacone Susp 30 ML UDC PO PRN (13:12)
--- NOTE | 2018-08-02 16:46 | P.PNPSY ---
Subjective Remarks: Reviewed electronic medical records and discussed case with staff. Follow-up was conducted in the hallway with nurse present. Patient was observed to out my time on the unit being hyperverbal and intrusive. She also remains somewhat irritable. Nursing staff reports that she has not been sleeping at night. Her speech remains loud, rapid, and pressured. I have added trazodone 50 mg by mouth at bedtime in an effort to help her sleep. She reportedly remains hypersexual there is been some difficulties with another patient on the unit and her. Mental Status Examination Appearance: Disheveled Consciousness: Alert Orientation: Person, Place, Date/Time Motor Activity: Normal gait Speech: Pressured, Rapid Language: Adequate Fund of Knowledge: Adequate Attention and Concentration: Inadequate Memory: Unremarkable Mood: Angry, Irritable, Manic Affect: Other (Increased range and intensity) Thought Process & Associations: Loose associations, Disorganized Thought Content: Racing thoughts, Preoccupations, Delusional Hallucination Type: None Delusion Type: Bizarre, Paranoid, Somatic Suicidal Ideation: No Suicidal Plan: No Suicidal Intention: No Homicidal Ideation: No Homicidal Plan: No Homicidal Intention: No Insight: Poor Judgment: Poor Assessment and Plan - Assessment (1) Bipolar affective disorder, manic, severe, with psychotic behavior Code(s): F31.2 - Bipolar disorder, current episode manic severe with psychotic features Status: Acute - Plan Plan: Patient will be reevaluated by the attending psychiatrist. Continue with current treatment plan. Patient remains hyperverbal, hypersexual, irritable, and intrusive. Trazodone at bedtime has been added to target her insomnia. Justification for Continued Inpatient Stay: Moving this patient to a less restrictive environment would likely result in decompensation. Request Healthcare Surrogate/Guardian Advocate?: Yes
--- NOTE | 2018-08-02 17:09 | P.PNIM ---
Subjective Interval history: Follow up probable STD Patient denies vaginal discharge or discomfort. No fevers or chills. Physical Exam Vital signs: Last Vital Signs Temp 98.6 F 08/02/18 16:49 Pulse 103 H 08/02/18 16:49 Resp 17 08/02/18 16:49 BP 123/82 08/02/18 16:49 Pulse Ox 98 08/02/18 16:49 Intake & Output 07/31/18 08/01/18 08/02/18 08/03/18 06:59 06:59 06:59 06:59 Intake Total 480 / 480 Balance 480 / 480 Narrative: GENERAL: well-nourished, well-developed patient, in no apparent distress. SKIN: Warm and dry. HEENT: Normocephalic, atraumatic. Pupils equal round and reactive. NECK: Trachea midline. CARDIOVASCULAR: Regular rate and rhythm without murmurs, gallops, or rubs. RESPIRATORY: Clear to auscultation. Breath sounds equal bilaterally. No wheezes , rales, or rhonchi. GASTROINTESTINAL: Abdomen soft, non-tender, nondistended. Bowel Sounds normoactive x4. MUSCULOSKELETAL: Extremities without clubbing, cyanosis, or edema. NEUROLOGICAL: Awake and alert. No focal neuro deficit. Moves all extremities. Fast speech. Results Labs CBC & Chem 7: 07/24/18 18:58 07/26/18 06:55 Assessment and Plan (1) Bipolar affective disorder, manic, severe, with psychotic behavior: Code(s): F31.2 - Bipolar disorder, current episode manic severe with psychotic features Status: Acute Plan Patient is a 28-year-old female with no known past medical history and surgical history who initially came into the hospital under [place] act by police department. Per review of records, patient was dancing and flailing her arms out in the road and there was concern that the patient may suffer harm. She is now admitted to inpatient psychiatry unit for further evaluation. Consulted for assistance with concerns for STD, herpes. Bipolar disorder -Managed by psychiatry team STD, r/o - evaluated 08/02/18 Sexually active, multiple partners -No palpable lesions on exam, no areas, nontender to palpate labia 07/31 -Denies itching, pain, discharges -HIV, hepatitis negative -Will be referred to PCP/[facility] for pelvic exam and Pap DVT Prop ambulatory Hospitalist team will sign off. Please re-consult if needed. Progress Note: Quality VTE Deep Vein Thrombosis/Pulmonary Embolism Present on Admission: No
[2018-08-02] MEDS ORDERED: traZODone 50 MG Tablet PO SCH (21:00)
[2018-08-03] MEDS: clonazePAM 0.5 MG Tablet PO SCH ×3 (05:08→21:06)
[2018-08-03] MEDS: Acetaminophen 325 MG Tablet PO PRN (08:22)
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
[2018-08-03] MEDS ORDERED: [UNRECOGNIZED DRUG - REMARK] IM SCH (18:00)
[2018-08-03] MEDS: traZODone 100 MG Tablet PO SCH (20:05)
[2018-08-04] MEDS: clonazePAM 0.5 MG Tablet PO SCH ×3 (06:03→21:28)
--- NOTE | 2018-08-04 09:47 | P.PNPSY ---
Subjective Remarks: Reviewed electronic medical records and discussed case with staff. Follow-up was conducted in the hallway. Patient looks alot better. She states she is sleeping and that she feels alot better. She states that she feels that her thoughts are clear and that she is able to focus. She is well groomed today and in a very spirted mood. Review of Systems All other systems reviewed negative except as stated in HPI Mental Status Examination Appearance: Appropriate Consciousness: Alert Orientation: Person, Place, Date/Time Motor Activity: Normal gait Speech: Pressured, Rapid Language: Adequate Fund of Knowledge: Adequate Attention and Concentration: Easily distracted Memory: Unremarkable Mood: Appropriate Affect: Appropriate, Other (Increased range and intensity) Thought Process & Associations: Intact Thought Content: Racing thoughts, Preoccupations Hallucination Type: None Delusion Type: Somatic Suicidal Ideation: No Suicidal Plan: No Suicidal Intention: No Homicidal Ideation: No Homicidal Plan: No Homicidal Intention: No Insight: Fair Judgment: Impulsive Assessment and Plan - Assessment (1) Bipolar 1 disorder Code(s): F31.9 - Bipolar disorder, unspecified Status: Deleted - Plan Plan: Continue current treatment plan. Discharge planning in progress. Justification for Continued Inpatient Stay: Moving patient to a less restrictive environment may result in her decompensation. Request Healthcare Surrogate/Guardian Advocate?: Yes
[2018-08-04] MEDS: traZODone 100 MG Tablet PO SCH (19:59)
[2018-08-05] MEDS: clonazePAM 0.5 MG Tablet PO SCH ×3 (06:59→22:01)
--- NOTE | 2018-08-05 09:01 | P.TTN ---
- Patient Problems Problems: 1. Discharge planning 2. Medication compliance 3. Knowledge deficit 4. Lack of coping skills - Progress Toward Goals Provider Present: Dr. Keon Ribera (Patient meets criteria for discharge.) Psychiatric Counselors Present: Dino Cantu Jr., [facility] (Patient is being discharged today to her boyfriends residence. We will not disclose the address. Patient is refusing homeless resource packet. Patient is refusing to be placed at a homeless fci in the [place] or [facility].) Group Spec/RT/OT/WOODWARD Present: TRACE Santiago (Patient attends select groups and has difficulty being redirected at this time.), TRACE Hardwick ( Patient attends group and is appropriate) - Documentation Teaching Recipient: Patient
--- NOTE | 2018-08-05 17:30 | P.PNPSY ---
Subjective Remarks: Patient seen and beckwith with nurse Kaylah and medical student Vera she is calmer more cooperative today her speech rate and rhythm are softer she showing some mild insight into her disease. She is compliant with her medications. She now states she is planning going with her boyfriend to relocate out of the [facility] because of the past history here. Patient denies suicidality or homicidality voices or visions. Cannot continue treatment consider discharge in the next 1-2 days Review of Systems All other systems reviewed negative except as stated in HPI Mental Status Examination Appearance: Appropriate Consciousness: Alert Orientation: Person, Place, Date/Time Motor Activity: Normal gait Speech: Pressured (Markedly decreased) Language: Adequate Fund of Knowledge: Adequate Attention and Concentration: Adequate Memory: Unremarkable Mood: Appropriate Affect: Other (Good range and intensity) Thought Process & Associations: Intact Thought Content: Racing thoughts Hallucination Type: None Suicidal Ideation: No Suicidal Plan: No Suicidal Intention: No Homicidal Ideation: No Homicidal Plan: No Homicidal Intention: No Insight: Fair Judgment: Adequate Assessment and Plan - Assessment (1) Bipolar affective disorder, manic, severe, with psychotic behavior Code(s): F31.2 - Bipolar disorder, current episode manic severe with psychotic features Status: Acute - Plan Plan: Patient improved her lesia softening psychosis is diminished consider discharge in 1-2 days Justification for Continued Inpatient Stay: At this time patient with decompensated placed on a lower level of care Discharge Planning: Possible discharge to boyfriend 1-2 days Request Healthcare Surrogate/Guardian Advocate?: Yes
[2018-08-05] MEDS: traZODone 100 MG Tablet PO SCH (20:52)
[2018-08-06] MEDS: Acetaminophen 325 MG Tablet PO PRN ×2 (00:46→08:57)
[2018-08-06 05:24] VITALS: RESP 19; TEMP 98.1; O2SAT 99
[2018-08-06 05:26] VITALS: BP 113/55; PULSE 81
[2018-08-06] MEDS: clonazePAM 0.5 MG Tablet PO SCH (05:32)
--- NOTE | 2018-08-06 14:05 | P.DSPSY ---
Psychiatry Discharge Summary Inpatient Psychiatric care?: Yes Advance Directives: No Mental Health Advance Directive: No Health Care Proxy: No - Admission Admission Date: July 25, 2018 10:10 - Admission Diagnosis (1) Bipolar affective disorder, manic, severe, with psychotic behavior Code(s): F31.2 - Bipolar disorder, current episode manic severe with psychotic features Brief History: The patient is a 28-year-old woman, homeless, unemployed, single, known by the service, with a psychiatric history of bipolar disorder, multiple psychiatric hospitalizations, the last hospitalization was in March 2017 here in [place] due to increased delusions and psychosis, she denies previous suicidal attempts, noncompliant with medications, she is not in psychotropics at the moment, she has a strong family history of psychiatric illnesses, her mother and her twin sister are both bipolar, no outpatient care, no significant medical history, who presents emergency department under [place] act by PD. Patient was dancing and flailing her arms out in the road and there was concerned that the patient may suffer harm. Patient is alert but psychotic. The psychiatric staff has asked me to medicate the patient prior to me evaluating her. She is given Geodon 20 mg IM, and posteriorly Ativan 2 mg and also Benadryl 50 mg IM. For this reason on my psychiatric evaluation the patient is kind of sedated, calm, superficially cooperative. The patient is very disorganized, tangential, but fully oriented x3. She says that in the last days she has been "very happy" with 10/10 energy, "making multiple friends , never been happier before". She reports that she has not slept in 2 days. He has not been taking any medications, denies the use of illegal drugs or alcohol. She denies suicidal enemas ideation, she denies visual and auditory hallucinations. She is fully oriented x3 at the moment. As per nurse report, the patient has being very disruptive in the unit, singing, dancing, getting inside other people's room, talkative, very difficult to redirect. I have review the documentation of her previous psychiatric hospitalizations, and in [address] she [address] Ribera very disorganized and delusional she was treated with Geodon and Ativan. PPHx:history of bipolar disorder, multiple psychiatric hospitalizations, the last hospitalization was in March 2017 here in [place] due to increased delusions and psychosis, she denies previous suicidal attempts, noncompliant with medications, she is not in psychotropics at the moment, she has a strong family history of psychiatric illnesses, her mother and her twin sister are both bipolar, no outpatient care PMHx: no significant medical history Family Hx: Her mother and twin sister are bipolar Substance Hx: She denies use of illegal drugs and alcohol, U tox is negative at this time Social Hx: She was born and raised in [facility], she is homeless in the [facility], single, unemployed, Tobacco Use In Past 30 Days: No How Often Do You Have a Drink Containing Alcohol: Monthly or less Hospital Course: Patient's hospital course was noted for patient's initial manic behavior that was quite intrusive hypersexual and tense demanding and labile. However she showed compliance with her medication. Patient to have a gradual lessening of her manic behaviors. He showed little improvement though in her insight. However her racing thoughts rapid pressured speech slowly decreased her behavior became more acceptable. She showed compliance with medication to the point where this past weekend she had loud and Abilify Maintena 400 mg to be given to her. At this time patient speech fair rate and rhythm are within normal limits there are still some mild disorganization but she is overall calm and cooperative denying suicidality or homicidality voices or visions at this time I feel patient is reached maximum benefit of this hospitalization. She is willing to continue with the injectable and oral medications and follow through stroke [facility] act less patient will be discharged today to herself to follow- up [facility] act for medication management and injection - Discharge Discharge Date: 08/06/18 - Discharge Diagnosis (1) Bipolar affective disorder, manic, severe, with psychotic behavior Code(s): F31.2 - Bipolar disorder, current episode manic severe with psychotic features Status: Acute Discharge Disposition: Home - Discharge Instructions Discharge Diet: Regular Diet Activities You Can Perform: Regular- No Restrictions - Discharge Time > 30 minutes Mental Status Examination Appearance: Appropriate Consciousness: Alert Orientation: Person, Place, Date/Time Motor Activity: Normal gait Speech: Pressured (Markedly decreased) Language: Adequate Fund of Knowledge: Adequate Attention and Concentration: Adequate Memory: Unremarkable Mood: Appropriate Affect: Other (Good range and intensity) Thought Process & Associations: Intact Thought Content: Racing thoughts Hallucination Type: None Delusion Type: Somatic Suicidal Ideation: No Suicidal Plan: No Suicidal Intention: No Homicidal Ideation: No Homicidal Plan: No Homicidal Intention: No Insight: Fair Judgment: Adequate Discharge/Advance Care Plan - Results Vital Signs: Last Vital Signs Temp 98.1 F 08/06/18 05:23 Pulse 81 08/06/18 05:23 Resp 19 08/06/18 05:23 BP 113/55 L 08/06/18 05:23 Pulse Ox 99 08/06/18 05:23 Lab Results: Laboratory Results Hemoglobin A1c 5.0 % (4.3-6.0) 07/26/18 06:55 Triglycerides 95 mg/dL (42-150) 07/26/18 06:55 Cholesterol 116 mg/dL (120-200) L 07/26/18 06:55 LDL Cholesterol, Calc 46 mg/dL (0-99) 07/26/18 06:55 HDL Cholesterol 51.3 mg/dL (40.0-60.0) 07/26/18 06:55 TSH 3.930 uIU/mL (0.358-3.740) H 07/26/18 06:55 Free T4 1.12 ng/dL (0.76-1.46) 07/26/18 06:55 Lengby 0.8 meq/L (0.5-1.5) 08/02/18 08:02 Summary of Procedures: None done Pending Results: None - Medications Number of antipsychotic medications at discharge: 1 - Discharge Care Plan Goals to Promote Your Health: * To prevent worsening of your condition and complications * To maintain your health at the optimal level Directions to Meet Your Goals: Take your medications as prescribed Follow your dietary instruction Follow activity as directed Keep your appointments as scheduled Take your immunizations and boosters as scheduled If your symptoms worsen call your PCP, if no PCP go to Urgent Care Center or Emergency Room For 02/04 questions related to your inpatient stay or results of tests pending at discharge, please contact Dr. Thaddeus Ribera MD at Smoking is Dangerous to Your Health. Avoid second hand smoking
== END 2018-08-06 14:25 | disposition home or self-care (01) ==
LOC: NEDAMB 18:20 → NEDA 07-25 10:10 → H270 07-25 11:34
PROVIDERS: ADMIT Psychiatry & Neurology Psychiatry; ATTEND Psychiatry & Neurology Psychiatry

== ENCOUNTER 2018-09-14 05:14 | Inpatient (IN) ==
[2018-09-14] MEDS ORDERED: LORazepam 1 MG Tablet PO ONE (05:36)
[2018-09-14 06:07] LABS: Baso % (Auto) 0.3 % (0.0-2.0); Eos # (Auto) 0.1 th/mm3 (0.0-0.4); Eos % (Auto) 0.9 % (0.0-4.0); Hematocrit 40.8 % (35.0-46.0); Hemoglobin 14.7 gm/dL (11.6-15.3); Lymph # (Auto) 1.5 th/mm3 (1.0-4.8); Mean Corpuscular Hemoglobin 32.6 pg (27.0-34.0); Mean Corpuscular Volume 90.2 fL (80.0-100.0); Mean Platelet Volume 7.9 fL (7.0-11.0); Mono # (Auto) 0.8 th/mm3 (0.0-0.9); Neut % (Auto) 78.8 % (16.0-70.0); Platelet Count 321 th/mm3 (150-450); Red Blood Count 4.53 mil/mm3 (4.00-5.30); Red Cell Distribution Width 13.6 % (11.6-17.2); White Blood Count 11.5 th/mm3 (4.0-11.0)
[2018-09-14 06:09] LABS: Mean Corpuscular HGB Conc 36.1 % (32.0-36.0)
[2018-09-14 06:21] LABS: Alanine Aminotransferase 22 U/L (10-53); Albumin 4.5 g/dL (3.4-5.0); Anion Gap 11 meq/L (5-15); Aspartate Aminotransferase 21 U/L (15-37); Blood Urea Nitrogen 10 mg/dL (7-18); Carbon Dioxide 22.3 meq/L (21.0-32.0); Chloride 107 meq/L (98-107); Glomerular Filtration Rate 65 mL/min (>89); Glucose,Random 89 mg/dL (74-106); Magnesium 2.2 mg/dL (1.5-2.5); Potassium 3.6 meq/L (3.5-5.1); Sodium 140 meq/L (136-145)
[2018-09-14 06:25] LABS: Amphetamine Screen,Urine Neg (Neg); Barbiturate Screen,Urine Neg (Neg); Cannabinoid Screen,Urine Pos (Neg); Cocaine Screen,Urine Neg (Neg)
[2018-09-14 06:26] LABS: Opiate Screen,Urine Neg (Neg)
[2018-09-14 06:31] LABS: Alkaline Phosphatase 74 U/L (45-117); Total Protein 8.3 g/dL (6.4-8.2)
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
[2018-09-14] MEDS ORDERED: Aluminum/Magnesium/Simethacone Susp 30 ML UDC PO PRN (12:42)
[2018-09-15 09:06] LABS: Calcium 8.5 mg/dL (8.5-10.1); Carbon Dioxide 27.7 meq/L (21.0-32.0)
[2018-09-15 09:09] LABS: Chol/HDL Ratio 1.98 Ratio; HDL Cholesterol 60.5 mg/dL (40.0-60.0)
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
[2018-09-15 12:54] LABS: Hemoglobin A1c 5.2 % (4.3-6.0)
[2018-09-15 15:56] VITALS: RESP 18
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
[2018-09-16] MEDS ORDERED: ABILIFY MAINTENA 400 MG IM ONE (13:00)
--- NOTE | 2018-09-16 13:38 | P.CONIM ---
History of Present Illness Service: Hospitalist Consult date: 09/16/18 Requesting Physician: Thaddeus Ribera Reason for Consult: Evaluation and management of rash Primary Care Provider: UNKNOWN History of Present Illness: This is a 28-year-old female with past medical history significant for bipolar disorder who was admitted to inpatient psychiatry secondary to acute psychotic behavior. Patient was found to have pruritic erythematous rash over the right ankle that appears to be spreading to other parts of the body and hospitalist services were consulted to assist with evaluation and management. Patient is homeless and living in the [facility]. She is noted to have erythematous vesicular rash over the right ankle, left lower leg, right inner forearm and left side of low back that appears to be most consistent with poison lesly dermatitis. Patient states it is intensely pruritic. She states this started on the right ankle and has been spreading. During our conversation patient is noted to be scratching at the rash repeatedly despite being told to stop touching it. Patient is manic with tangential speech but is easily redirectable. Patient is hyperreligious and states that she thinks the rash is healing "by the racing". She denies any fever or chills. She denies any chest pain or shortness of breath. Review of Systems Review of Systems: all other systems reviewed are negative PMFSH Medical History Medical History Bipolar disorder (Acute) Patient denies medical problems (Acute) Surgical History Surgical History No history of previous surgery (Acute) Family History Family History Mother Breast cancer Social History Social History Substance History: Active Abuse Second Hand Smoke Exposure: No Smoking Status: Current every day smoker Tobacco Type: Cigarettes How Often Do You Have a Drink Containing Alcohol: Never Recent Travel in [place] within the Last 8 Weeks: No Recent Out of Country Travel within the Last 8 Weeks: No Substance Abuse Detail Marijuana: Substance Use Status: Active Route Used Substance Abuse: Inhalation Substance Abuse Comment: DENIES Reason for Use: Calm Down and Feels Good Medications and Allergies Allergies Allergy/AdvReac Type Severity Reaction Status Date / Time No Known Allergies Allergy Verified 07/24/18 18:34 Active Medications: Active Medications Al Hydrox/Mg Hydrox/Simethicone (Mag-Al Plus Susp Liq) 30 ml PO Q6H PRN PRN Reason: DYSPEPSIA Al Hydroxide/Mg Hydroxide (Milk Of Magnesia Liq) 30 ml PO Q12H PRN PRN Reason: Mild Constipation Aripiprazole (Abilify) 15 mg PO DAILY [facility] Last Admin: 09/16/18 08:15 Dose: 15 mg Lactulose (Lactulose Liq) 30 ml PO DAILY PRN PRN Reason: SEVERE CONSITIPATION Lorazepam (Ativan Inj) 1 mg IM Q6H PRN PRN Reason: MODERATE TO SEVERE ANXIETY Nicotine (Habitrol 21 Mg Patch.24 Hr) 1 patch T-DERMAL DAILY [facility] Last Admin: 09/16/18 08:15 Dose: 1 patch Patch Removal (Remove Old Patch) 1 each T-DERMAL DAILY [facility] Last Admin: 09/16/18 08:52 Dose: 1 each Sennosides (Senokot) 17.2 mg PO Q12H PRN PRN Reason: Moderate Constipation Ziprasidone (Geodon Inj) 20 mg IM Q12H PRN PRN Reason: SEVERE AGITATION Physical Exam Vital signs: Last Vital Signs Temp 97.5 F L 09/16/18 06:00 Pulse 82 09/16/18 06:00 Resp 18 09/16/18 06:00 BP 116/76 09/16/18 06:00 Pulse Ox 97 09/16/18 06:00 Intake & Output 09/14/18 09/15/18 09/16/18 09/17/18 06:59 06:59 06:59 06:59 Weight 63.503 kg 62 kg 63.9 kg Narrative: GENERAL: Well-developed well-nourished female patient, in no acute distress. Awake and alert. SKIN: Warm and dry. + Pruritic vesicular erythematous rash consistent with poison lesly contact dermatitis over right ankle, left lower leg, right inner forearm and left side low back HEAD: Atraumatic. Normocephalic. EYES: Pupils equal and round. No scleral icterus. No injection or drainage. ENT: No nasal bleeding or discharge. Mucous membranes pink and moist. NECK: Trachea midline. CARDIOVASCULAR: Regular rate and rhythm. RESPIRATORY: No accessory muscle use. Clear to auscultation. Breath sounds equal bilaterally. GASTROINTESTINAL: Abdomen soft, non-tender, nondistended. Bowel sounds normal. MUSCULOSKELETAL: Extremities without clubbing, cyanosis, or edema. No obvious deformities. NEUROLOGICAL: Awake and alert. No obvious cranial nerve deficits. Motor grossly within normal limits. Normal speech. PSYCHIATRIC: Manic with tangential speech but redirectable Results Labs CBC & Chem 7: 09/14/18 05:49 09/15/18 08:21 Assessment and Plan (1) Bipolar affective disorder, manic, severe, with psychotic behavior: Code(s): F31.2 - Bipolar disorder, current episode manic severe with psychotic features Status: Acute Plan 28-year-old female with past medical history significant for bipolar disorder admitted with manic episode and acute psychosis: Bipolar disorder with acute psychosis -Management per psychiatric team Poison lesly contact dermatitis, no evidence of secondary bacterial infection Patient is homeless and lives in the [facility] -Patient advised to stop touching the rash to prevent further spread -Diprolene application BID -Benadryl topical and p.o. as needed for itching -Monitor for improvement DVT prophylaxis -Patient is ambulatory Thank you very kindly for this consultation. Patient appears stable from hospitalist standpoint. [facility] will sign off. Please reconsult if needed
[2018-09-16] MEDS ORDERED: diphenhydrAMINE 2%/Zinc Cream 30 GM Tube TOPICAL PRN (13:51)
[2018-09-17] MEDS: clonazePAM 1 MG Tablet PO SCH ×2 (09:45→20:31)
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
--- NOTE | 2018-09-17 11:51 | P.PNPSY ---
Subjective Chief Complaint: bizarre behavior Remarks: Patient seen for follow-up, chart reviewed, patient discussed with nursing staff ; we reviewed the patient's mood, thoughts, and behaviors from overnight and this morning. Nurse reports the patient was awake overnight talking loudly in the day room yelling clapping arguing with staff and peers. She was difficult to redirect but did not receive an emergency treatment order. The patient was seen this morning on the unit and she was clearly disinhibited and easily distracted. She repeatedly came to the nurse's station window and banged on it making demands from the physician then apologizing for her behavior. The patient requested discharge but after we discussed the evidence of her manic symptoms she was agreeable with continued treatment as well as the addition of Klonopin for acute mood stabilization. She has been on lithium in the past but she insists that she had adverse reactions and she is only willing to take the Abilify may obtain a Abilify p.o. Mental Status Examination Appearance: Appropriate Consciousness: Alert Orientation: x4 Motor Activity: Normal gait Speech: Rapid Language: Adequate Fund of Knowledge: Adequate Attention and Concentration: Inadequate Memory: Unremarkable Mood: Manic Affect: Labile Thought Process & Associations: Disorganized Thought Content: Appropriate Hallucination Type: None Delusion Type: None Suicidal Ideation: No Suicidal Plan: No Suicidal Intention: No Homicidal Ideation: No Homicidal Plan: No Homicidal Intention: No Insight: Poor Judgment: Poor Assessment and Plan - Assessment (1) Bipolar affective disorder, manic, severe, with psychotic behavior Code(s): F31.2 - Bipolar disorder, current episode manic severe with psychotic features Status: Acute - Plan Plan: 09/16/2018: Fair response to inpatient treatment, the patient continues to demonstrate symptoms of lesia as evidenced by her decreased need for sleep, hyperreligiosity, disinhibited behaviors, but she has been cooperative with care and she is sincerely motivated to restart her Abilify maintainer. Informed consent completed and nonformulary request placed. Continue inpatient treatment and stabilization. Give Abilify Maintena 400 mg IM x1. Continue Abilify 15 mg/day for treatment of bipolar disorder times 2 weeks. 09/17/2018: Unsatisfactory response to treatment; the patient continues to have severe symptoms of lesia but this is not unexpected as the half-life of Abilify is up to 2 weeks and can take up to 2 weeks to reach steady state. We discussed risks benefits side effects and alternatives and the patient agreed to the use of Klonopin 1 mg twice a day for acute mood stabilization as we wait for more therapeutic response to the Abilify. Continue inpatient treatment and stabilization. Continue Abilify 15 mg p.o. daily as we wait the 2 weeks for Abilify maintainer to reach therapeutic levels. Start Klonopin 1 mg twice a day for acute mood stabilization. Justification for Continued Inpatient Stay: Patient remains an elevated risk for self-harm by self neglect and will require further inpatient stabilization and preparation of a safe discharge plan. Moving patient to a less restrictive environment at this time may result in decompensation.
[2018-09-18] MEDS: clonazePAM 1 MG Tablet PO SCH ×2 (07:59→21:07)
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
[2018-09-19 05:59] VITALS: BP 132/82; PULSE 91; TEMP 97.7; O2SAT 97
[2018-09-19] MEDS: clonazePAM 1 MG Tablet PO SCH (08:05)
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
== END 2018-09-19 12:45 | disposition home or self-care (01) | DRG 885 ==
LOC: NEPJ 05:14 → NEDA 13:19 → H270 13:58
PROVIDERS: ADMIT Psychiatry & Neurology Psychiatry; ATTEND Psychiatry & Neurology Psychiatry
CPT/HCPCS: 80048; 80053; 80061; 80178; 80307; 83036; 83735; 84443; 84703; 85025; 90772; 90782; 90791; 96372; 99285; C9204; J3486